=== PATIENT | male | born 1965 | race Two or more races ===

== ENCOUNTER 2022-04-13 08:01 | Outpatient (CLI) | payer SELFPAY | END 2022-04-13 08:02 | disposition home or self-care (01) | LOC: AMB 04-16 18:08 | PROVIDERS: Visit Provider Family Medicine | DX: R41.82 Altered mental status, unspecified (principal) ==

== ENCOUNTER 2022-08-14 20:25 | Observation (INO) | payer SELFPAY ==
[2022-08-14 20:30] VITALS: BP 150/91; PULSE 92; RESP 18; TEMP 36.5; O2SAT 97
--- NOTE | 2022-08-14 20:40 | ED_ITS ---
HPI - General Adult General Time Seen by Provider: 20:40 Date Seen: 08/14/22 Chief complaint: Unspecified Complaint, Adult Stated complaint: Left side facial swelling and pain Time Seen by Provider: 08/14/22 20:27 Source: patient, RN notes reviewed and director of labor relations Mode of arrival: ambulatory Limitations: no limitations History of Present Illness HPI narrative: Patient is a 57-year-old male coming into the ER with left facial swelling and pain. The swelling started on Monday, he has had increased pain and swelling though more so today. He has not noted any fevers. He has maybe had some dental pain on that side but not necessarily in conjunction with his current symptoms. He reportedly can chewing eat without any difficulty, no swallowing difficulties. Related Data Allergies Allergy/AdvReac Type Severity Reaction Status Date / Time No Known Drug Allergies Allergy Verified 08/14/22 21:42 PFSH PFSH Social History Smoking Status: Never smoker Non-prescribed substance use: denies use Exam Const: Vital Signs, click to edit/add: Vital Signs - 24 hr 08/14/22 20:30 Temperature 97.7 F Pulse Rate [Left P ulse Oximeter] 92 Respiratory Rate 18 Blood Pressure [Ri ght Upper Arm] 150/91 H Pulse Oximetry 97 Oxygen Delivery Me thod Room Air Documenting provider has reviewed patient's vital signs: yes Common normals: no apparent distress, average body habitus, oriented x3, no limitations, healthy appearing and alert General appearance: cooperative, comfortable, well kempt and well developed HENMT: Common normals: normocephalic, head/scalp atraumatic, hearing grossly normal bilaterally, external ears normal, TM's normal bilaterally, external nose normal, nasal mucous membranes and turbinates normal, moist oral mucous membranes and oropharynx normal Head and scalp: normocephalic and atraumatic Nose: external nose normal and nasal mucous membranes and turbinates normal External ear: external ears normal Tympanic membrane: TM's normal bilaterally Teeth and gingiva: poor dentition (but no evidence of odontoid infection noted) Throat: posterior oropharynx normal Eye: Common normals: PERRL, EOMs intact bilaterally, conjunctivae normal and no scleral icterus Conjunctiva: conjunctiva(e) normal Pupil: PERRL Other: Has facial swelling along left lower face, slightly reddened, no fluctuance, not really tender when I palpate although he does state it is sore baseline. He has some swelling without erythema that seems to go into the left upper lip and along the nasal labial fold. The nose itself seems normal. Swelling maybe reflects along the left lower jaw. Can open his mouth easily without any difficulty, no trismus. Neck & C-Spine: Common normals: full ROM, no lymphadenopathy, supple, no meningeal signs and thyroid normal Thyroid: thyroid normal Resp: Common normals: normal respiratory effort, no retractions, no use of accessory muscles and clear to auscultation bilaterally Auscultation: clear to auscultation bilaterally Cardio: Common normals: regular rate, regular rhythm, S1 normal heart sound, S2 normal heart sound, no gallops, no clicks and no murmurs Rate: regular rate Rhythm: regular rhythm Heart sounds: S1 normal and S2 normal Neuro: Common normals: oriented x3 Sensorium/orientation: alert Meningeal signs: no meningeal signs Psych: Appearance: well kempt Course Reevaluation(s) Reevaluation #1: Have reviewed with patient that there is an abscess likely from dental origin. Where it is situated on the CT it looks like it is just below his left nose. When I re-evaluate, I can see up in front that there may be is reachable abscess pocket, he is tender there. He would like something for pain. We will try some Toradol and Tylenol, if this is not sufficient then other pain management can be discussed. He denies any allergies to penicillin class, will initiate Unasyn for this abscess. We also reviewed that his sugar is 616. He is known to be diabetic and only takes metformin. I did briefly review this with Dr. Daugherty at 11:31 p.m., she agrees with hospitalization here given his glucose level and the abscess. We cannot do definitive care for this dental issue but we do need to initiate antibiotic treatment and work on his diabetic control. I do have a hemoglobin A1c which I did do a lab add on for. Am waiting to talk to the overnight admitting service. I have talked to patient about trying to use a little lidocaine to numb the gum area up and see if I can open the abscess pocket. Time: 23:42 Reevaluation #2: With the assistance of nursing staff, was able to better reflect his upper lip and see there was indeed a good abscess pocket that was palpably fluctuant overlying his front upper teeth, primarily most prominent in the left 1st upper front tooth. 2 mL of plain 1% lidocaine was drawn up. I only needed to infiltrate about 1 mL in the area. A 12 blade scalpel was used to make a stab incision into the center of this fluctuant area and copious mucopurulent material started draining. Patient did relay that some of the pressure was improved. Time: 01:01 Consultations Consultation #1: Just spoke with hospitalist from [facility], she will accept the patient. I will however attempt to open this abscess before he goes down to the floor. We did also discuss insulin, agreed on initiating the patient 10 units long-acting nightly insulin, subsequently ordered 10 units of Levemir. Time: 00:17 Vital Signs Vital signs: Initial Vital Signs Temperature 97.7 F 08/14/22 20:30 Temperature Source Temporal Artery Scan 08/14/22 20:30 Pulse Rate 92 08/14/22 20:30 Respiratory Rate 18 08/14/22 20:30 Blood Pressure 150/91 H 08/14/22 20:30 Blood Pressure Mean 110 H 08/14/22 20:30 Blood Pressure Position Sitting 08/14/22 20:30 Pulse Oximetry 97 08/14/22 20:30 Oxygen Delivery Method Room Air 08/14/22 20:30 Vital Signs Temperature 97.7 F 08/14/22 20:30 Pulse Rate 92 08/14/22 20:30 Respiratory Rate 18 08/14/22 20:30 Blood Pressure 150/91 H 08/14/22 20:30 Pulse Oximetry 97 08/14/22 20:30 Oxygen Delivery Method Room Air 08/14/22 20:30 Temperature 97.7 F 08/14/22 20:30 Pulse Rate 92 08/14/22 20:30 Respiratory Rate 18 08/14/22 20:30 Blood Pressure 150/91 H 08/14/22 20:30 Pulse Oximetry 97 08/14/22 20:30 Oxygen Delivery Method Room Air 08/14/22 20:30 Medical Decision Making Lab Data Lab results reviewed: Yes I reviewed the patient's lab results Labs: Lab Results 08/14/22 08/14/22 Range/Units 21:00 22:40 WBC 7.43 (4.50-11.00) K/uL RBC 4.60 (4.30-5.90) m/uL Hgb 14.2 (13.5-17.5) gm/dL Hct 43.3 (37.0-53.0) % MCV 94 (80-100) fL MCH 31 (26-34) pg MCHC 33 (32-36) gm/dL RDW Coeff of Sarai 12.1 (11.5-15.5) % Plt Count 224 (140-440) K/uL Neut % (Auto) 76.9 H (42.0-72.0) % Lymph % (Auto) 14.5 L (20-44) % Bowman % (Auto) 7.9 (0.0-11.0) % Eos % (Auto) 0.5 (0.0-7.0) % Baso % (Auto) 0.1 (0.0-3.0) % Neut # (Auto) 5.70 (1.7-7.0) K/uL Lymph # (Auto) 1.10 (0.90-2.90) K/uL Bowman # (Auto) 0.60 (0.00-0.90) K/UL Eos # (Auto) 0.04 (0.00-0.50) K/uL Baso # (Auto) 0.01 (0.00-0.30) K/uL Sodium 135 (135-149) mmol/L Potassium 4.5 (3.6-5.1) mmol/L Chloride 96 (96-114) mmol/L Carbon Dioxide 25 (20-32) mmol/L BUN 15 (7-30) mg/dL Creatinine 0.8 (0.5-1.5) mg/dL Estimated GFR 103 ml/min Glucose (60-115) mg/dL Hemoglobin A1c > 14.00 H (0-5.6) % Calcium 9.4 (8.4-10.6) mg/dL C-Reactive Protein 5.2 H (0.5-1.0) mg/dL Lab Acknowledgement Test Added POC Creatinine 0.9 (0.6-1.3) mg/dl Imaging Data CT soft tissue neck with IV contrast: Attestation: I have reviewed the pertinent imaging results. My impression: My preliminary review, can see what looks to be facial abscess area, need to await Radiology over-read on this. Radiologist's impression: Patient: MIRIAM HOLBROOK Facility:?[facility] Patient ID:?[id number] Site Patient ID:?[id number]. Site :?[id number] Study:?CT ST Neck w/ 93cc [id number]-325-1/14/2023 9:43:58 PM Ordering Physician:Vijay Jeff Final Report: INDICATION: Left facial swelling and pain. TECHNIQUE: CT soft tissue of the neck was acquired with 93 cc Isovue 370 contrast. COMPARISON: None. FINDINGS: Skull base: Complete opacification of the left maxillary sinus with hyperostosis of the sinus balderrama, likely sequela chronic inflammation. Mucous retention cyst in the right maxillary sinus. Pharynx/Larynx/Trachea: Epiglottis is normal. Airway is patent. Adjacent soft tissues are normal. Salivary glands: Unremarkable. Thyroid gland: Unremarkable. No significant nodules. Lymph nodes: No lymphadenopathy. Vessels: Unremarkable for age. Bones: Unremarkable for age. Misc: Lobulated peripherally enhancing low density collection in the left premaxillary soft tissues measuring approximately 2.7 x 1.3 x 1.3 cm (TR x AP x CC). Surrounding soft tissue stranding. Lung apices: Unremarkable. IMPRESSION: 1. Left premaxillary soft tissue abscess. Although there is no dehiscence of the maxillary alveolar ridge, this is still favored to be periodontal in origin given adjacent dental caries. 2. Chronic sinusitis left maxillary sinus. Please note that all CT scans at this facility use dose modulation, iterative reconstruction, and/or weight-based dosing when appropriate to reduce radiation dose to as low as reasonably achievable. Dictated by Piyush Rodriguez MD @ 08/14/2022 11:20:36 PM (Electronic Signature) Critical Care Time Critical Care Time Critical Care Time: No Discharge Plan Discharge Clinical Impression: Uncontrolled type 2 diabetes mellitus, Dental abscess Patient Disposition: Admitted As Inpatient Condition: Improved
--- NOTE | 2022-08-14 20:52 | CRLHL7_ITS ---
For Patients: As a result of the Century Cures Act, medical imaging exams and procedure reports are released immediately into your electronic medical record. You may view this report before your referring provider. If you have questions, please contact your health care provider. INDICATION: Left facial swelling and pain. TECHNIQUE: CT soft tissue of the neck was acquired with 93 cc Isovue 370 contrast. COMPARISON: None. FINDINGS: Skull base: Complete opacification of the left maxillary sinus with hyperostosis of the sinus balderrama, likely sequela chronic inflammation. Mucous retention cyst in the right maxillary sinus. Pharynx/Larynx/Trachea: Epiglottis is normal. Airway is patent. Adjacent soft tissues are normal. Salivary glands: Unremarkable. Thyroid gland: Unremarkable. No significant nodules. Lymph nodes: No lymphadenopathy. Vessels: Unremarkable for age. Bones: Unremarkable for age. Misc: Lobulated peripherally enhancing low density collection in the left premaxillary soft tissues measuring approximately 2.7 x 1.3 x 1.3 cm (TR x AP x CC). Surrounding soft tissue stranding. Lung apices: Unremarkable. IMPRESSION: 1. Left premaxillary soft tissue abscess. Although there is no dehiscence of the maxillary alveolar ridge, this is still favored to be periodontal in origin given adjacent dental caries. 2. Chronic sinusitis left maxillary sinus. Please note that all CT scans at this facility use dose modulation, iterative reconstruction, and/or weight-based dosing when appropriate to reduce radiation dose to as low as reasonably achievable. Dictated by Piyush Rodriguez MD @ 08/14/2022 11:20:36 PM (Electronically Signed)
[2022-08-14 21:11] LABS: Basophils Absolute Auto 0.01 K/uL (0.00-0.30); Basophils Percent Auto 0.1 % (0.0-3.0); Eosinophils Absolute Auto 0.04 K/uL (0.00-0.50); Eosinophils Percent Auto 0.5 % (0.0-7.0); Hematocrit 43.3 % (37.0-53.0); Hemoglobin* 14.2 gm/dL (13.5-17.5); Immature Granulocytes Abs Auto 0.01 K/uL (0.00-0.30); Immature Granulocytes Pct Auto 0.1 %; Lymphocytes Percent Auto 14.5 % (20-44); Mean Corpuscular HGB Conc 33 gm/dL (32-36); Mean Corpuscular Hemoglobin 31 pg (26-34); Mean Corpuscular Volume 94 fL (80-100); Monocytes Percent Auto 7.9 % (0.0-11.0); Neutrophils Percent Auto 76.9 % (42.0-72.0); Platelet Count* 224 K/uL (140-440); RDW Coefficient of Variation % 12.1 % (11.5-15.5); White Blood Count* 7.43 K/uL (4.50-11.00)
[2022-08-14 21:12] LABS: Creatinine, Point-of-Care* 0.9 mg/dl (0.6-1.3)
[2022-08-14 21:14] LABS: Slide Review Reflex No
[2022-08-14 21:41] LABS: Chloride* 96 mmol/L (96-114); Potassium* 4.5 mmol/L (3.6-5.1); Sodium* 135 mmol/L (135-149)
[2022-08-14 21:44] LABS: Blood Urea Nitrogen* 15 mg/dL (7-30); Carbon Dioxide* 25 mmol/L (20-32); Creatinine* 0.8 mg/dL (0.5-1.5); Estimated Glomerular Filt Rate 103 ml/min
[2022-08-14 21:45] LABS: Calcium* 9.4 mg/dL (8.4-10.6)
[2022-08-14 21:47] LABS: C Reactive Protein* 5.2 mg/dL (0.5-1.0)
[2022-08-14 23:38] LABS: Hemoglobin A1C* > 14.00 % (0-5.6)
--- NOTE | 2022-08-14 23:39 | PC.NURSE ---
at with stock associate
[2022-08-14] MEDS: AMPICILLIN/SULBACTAM 3 GM in 0.9 % SODIUM CHLORIDE Mini-bag 100 ML IVPB (23:59)
[2022-08-14] MEDS: ACETAMINOPHEN 500 MG TABLET 1000 MG PO (23:59)
[2022-08-14] MEDS: KETOROLAC 15 MG/ML inj IVP (23:59)
[2022-08-15 01:13] VITALS: BP 130/91; PULSE 75; RESP 18; TEMP 36.9; O2SAT 95; O2SAT 98; BMI 24.6
--- NOTE | 2022-08-15 01:49 | PC.NURSE ---
nursing called georgina provider to report BG 485. Provider states have patient eat something and recheck BG in 1 hour
--- NOTE | 2022-08-15 01:58 | P.CCN_ITS ---
Assessment and Plan Assessment and plan (1) Dental abscess: Status: Acute (2) Uncontrolled type 2 diabetes mellitus: Status: Acute Plan [facility] Hospitalist Consult for Admission eHospitalist was contacted with request of consultation for admission. 57-year-old male, past medical history significant for uncontrolled T2DM, who presents to local ED with complaints of left-sided facial swelling, pain. Patient evaluated and interviewed with the assistance of a ordnance engineer. Patient reports left-sided facial swelling and pain began last Monday and has since steadily worsened. Patient denies any associated fevers, drainage, difficulty swallowing or breathing. Patient states he has never had anything similar before. He does endorse issues with his teeth in the past, however nothing recently. Patient underwent I&D in the ED, with reported mucopurulent drainage and relief of pain/pressure. States he is feeling a lot better at present. Home Medications: Has been out of his medications recently. Pertinent Medical History: T2DM Pertinent Social History: Denies tobacco, illicit drug use. Endorses rare alcohol use. Exam (performed via interactive video with assistance of bedside nurse): General: alert, cooperative, no acute distress HEENT: oral mucosa pink and moist without erythema. Unable to see any active drainage. Poor dentition noted. Lungs: clear to auscultation bilaterally without crackle or wheeze CV: regular rate and rhythm without loud murmur rub or gallop Abd: denies tenderness and does not exhibit signs of pain with palpation done by bedside nurse Skin: no rashes, bruises or lesions appreciated on gross visualization of exposed skin Neuro: alert, oriented x 3. facial muscles grossly intact, moves all extremities without any significant focal deficit appreciated by nurse #Left periodontal abscess ?Patient underwent I&D by ED physician with improvement in symptoms, appreciate assistance. Patient placed on Unasyn, will continue. ?Acetaminophen available as needed for pain. Patient currently asymptomatic. ?Will be important for patient to have dental follow-up as an outpatient, as suspect poor dentition (and uncontrolled diabetes) predisposed him to this ab scess #T2DM, uncontrolled ? Blood sugar on admission, >600. Hemoglobin A1c >14. Patient given 10 units Levemir in the ED, which brought his sugar down to 45 when rechecked on the floor. Will have patient eat something, and recheck blood sugars every hour until stabilized. Hypoglycemic protocol also ordered. ?Consult placed to nutrition to assist with diabetic education. Diet: Diabetic VTE prophylaxis: Ambulation CODE STATUS: Full code Thank you for including [facility] Hospitalist in this patient's care. This service is available for further assistance as requested by your care team by calling [phone]. Dictation Comment: This document was transcribed utilizing [id number] technology ([employer] software). Occasional mistranslation may occur.
--- NOTE | 2022-08-15 02:50 | PC.NURSE ---
Nursing spoke with [facility] to report updated BG of 473 and previous [facility] nurse Alberto interpreted BG wrong and informed provider at [facility] that patient BG was 65 instead of 485. This nurse that spoke with [facility] nurse and informed Alberto that the value was repeated back to nurse several times at 485. Alberto, nurse informed provider of correct blood sugar trend and NovoLog aspart was order to be given to patient. Nursing call [facility] telepharmacy to have medication verified STAT.
--- NOTE | 2022-08-15 04:12 | PC.NURSE ---
This nurse spoke with Aleena and reported BG of 403. Aleena will notifiy provider and give nursing a call back.
[2022-08-15] MEDS: AMPICILLIN/SULBACTAM 3 GM in 0.9 % SODIUM CHLORIDE Mini-bag 100 ML IVPB ×4 (05:19→23:14)
--- NOTE | 2022-08-15 06:45 | PC.NURSE ---
[id number]: Patient presents to the floor at approx 0100 with asymptomatic hyperglycemia and drainage of abscess in mouth. Patient has no complains of pain at this time. Economics Teacher used for admission and assessment. Patient denies chest pain, shortness of breath, headache, dizziness, fatigue and numbness and tingling. Patient with frequent urination. Patient blood sugar checked hourly for the first few hours to the floor and then provider discontinued order and states blood sugar within a reasonable number at 403 as blood sugar was trending down at this time. Patient with good appetite. Patient rested well. Patient continues on ABX therapy for abscess.
[2022-08-15 07:06] LABS: Basophils Absolute Auto 0.02 K/uL (0.00-0.30); Basophils Percent Auto 0.3 % (0.0-3.0); Eosinophils Absolute Auto 0.07 K/uL (0.00-0.50); Eosinophils Percent Auto 1.1 % (0.0-7.0); Hemoglobin* 12.6 gm/dL (13.5-17.5); Immature Granulocytes Abs Auto 0.01 K/uL (0.00-0.30); Immature Granulocytes Pct Auto 0.2 %; Lymphocytes Absolute Auto 1.73 K/uL (0.90-2.90); Lymphocytes Percent Auto 26.5 % (20-44); Mean Corpuscular HGB Conc 33 gm/dL (32-36); Mean Corpuscular Hemoglobin 31 pg (26-34); Mean Corpuscular Volume 94 fL (80-100); Monocytes Percent Auto 10.6 % (0.0-11.0); Neutrophils Absolute Auto 4.02 K/uL (1.7-7.0); Neutrophils Percent Auto 61.3 % (42.0-72.0); Platelet Count* 202 K/uL (140-440); RDW Coefficient of Variation % 12.1 % (11.5-15.5); Red Blood Count 4.05 m/uL (4.30-5.90); White Blood Count* 6.54 K/uL (4.50-11.00)
[2022-08-15 07:18] LABS: Chloride* 101 mmol/L (96-114); Potassium* 3.6 mmol/L (3.6-5.1); Sodium* 139 mmol/L (135-149)
[2022-08-15 07:20] LABS: Creatinine* 0.6 mg/dL (0.5-1.5); Est. Creatinine Clearance* 129.83; Estimated Glomerular Filt Rate 112 ml/min
[2022-08-15 07:21] LABS: Blood Urea Nitrogen* 18 mg/dL (7-30); Calcium* 9.2 mg/dL (8.4-10.6); Carbon Dioxide* 31 mmol/L (20-32); Glucose* 340 mg/dL (60-115)
[2022-08-15 07:27] LABS: Slide Review Reflex No
[2022-08-15 08:00] VITALS: BP 117/80; PULSE 67; RESP 14; TEMP 36.9; O2SAT 98
--- NOTE | 2022-08-15 08:15 | PM.IMPN1 ---
Progress Note: A&P Assessment and plan (1) Dental abscess: Status: Acute (2) Uncontrolled type 2 diabetes mellitus: Status: Acute Subjective Date Seen: 08/15/22 Interval history: Daily Progress Note - Hospital Medicine Day #: 2 CC: Unasyn Day#2 (start date 08/14/22 evening) OVERNIGHT UPDATES FROM STAFF & MED, LAB, IMAGING UPDATES Afebrile overnight. Blood sugars are slowly coming down. This morning is 316. He received Levemir at 10 units last night and is on sliding scale. This morning I restarted his oral antihyperglycemics which include glipizide 10 mg and metformin 1 g XR b.i.d.. His blood pressure has been excellent. Heart rate has been in the 60s to 70s. He is on Tylenol but no other pain medications. Objective: Vitals: see above Lungs: Clear. Cardiac: S1S2. Disposition/Potential discharge - Likely to return to previous living situation. Total time is 35 minutes with greater than 50% spent in counseling and coordination of care. Exam Const: Vital Signs, click to edit/add: Vital Signs - 24 hr 08/14/22 20:30 08/15/22 01:13 08/15/22 01:13 Temperature 97.7 F 98.5 F Pulse Rate [Left P ulse Oximeter] 92 Pulse Rate [Pulse Oximeter] 75 Respiratory Rate 18 18 Blood Pressure [Ri ght Arm] 130/91 H Blood Pressure [Ri ght Upper Arm] 150/91 H Pulse Oximetry 97 98 95 Oxygen Delivery Me thod Room Air Room Air Room Air Labs Labs: Laboratory Results - last 24 hr 08/14/22 08/14/22 08/15/22 21:00 22:40 06:58 WBC 7.43 6.54 RBC 4.60 4.05 L Hgb 14.2 12.6 L Hct 43.3 38.0 MCV 94 94 MCH 31 31 MCHC 33 33 RDW Coeff of Sarai 12.1 12.1 Plt Count 224 202 Neut % (Auto) 76.9 H 61.3 Lymph % (Auto) 14.5 L 26.5 Screven % (Auto) 7.9 10.6 Eos % (Auto) 0.5 1.1 Baso % (Auto) 0.1 0.3 Neut # (Auto) 5.70 4.02 Lymph # (Auto) 1.10 1.73 Screven # (Auto) 0.60 0.70 Eos # (Auto) 0.04 0.07 Baso # (Auto) 0.01 0.02 Sodium 135 139 Potassium 4.5 3.6 Chloride 96 101 Carbon Dioxide 25 31 BUN 15 18 Creatinine 0.8 0.6 Estimated Creat Clear 129.83 Estimated GFR 103 112 Glucose 340 H Hemoglobin A1c > 14.00 H Calcium 9.4 9.2 C-Reactive Protein 5.2 H Lab Acknowledgement Test Added POC Creatinine 0.9
[2022-08-15] MEDS: glipiZIDE XL 5 MG TAB 10 MG PO (08:21)
[2022-08-15] MEDS: METFORMIN ER 500 MG 1000 MG PO ×2 (08:21→20:57)
--- NOTE | 2022-08-15 09:07 | P.IMHP_ITS ---
Hospitalist- H&P: HPI History of Present Illness Date Seen: 08/15/22 Chief complaint: Left side facial swelling and pain Narrative: ADMISSION HISTORY AND PHYSICAL - HOSPITALIST Chief Complaint: Tooth pain, headache HPI: 57-year-old type 2 diabetic male presents to our emergency room yesterday with approximately 6 days of increasing symptoms in his left upper gum line. He has had on and off dental pressure for several weeks but the pain in the last 5 days has accelerated. Afebrile overnight. Blood sugars are slowly coming down. This morning is 316. He received Levemir at 10 units last night and is on sliding scale. This morning I restarted his oral antihyperglycemics which include glipizide 10 mg and metformin 1 g XR b.i.d.. His blood pressure has been excellent. Heart rate has been in the 60s to 70s. He is on Tylenol but no other pain medications. ER COURSE: CBC, chemistries, A1c and a CT soft tisse neck were obtained in the emergency room. These are reviewed in detail. CODE STATUS: FULL CODE EMERGENCY CONTACT PLAN: I've updated the PFSH, medications and allergies in the Expanse tabs. INVESTIGATIONS: LABS/MICRO/ECG/IMAGING 117/80, pulse 67, respiration 14, afebrile. 98% on room air. CBC reflects a white count that is stable Hemoglobin that previously was 14.2 yesterday upon arrival and is now 12.6 Platelets normal Blood sugars have been 340, 316 up to 485. A1c is greater than 14. Normal renal function and normal electrolytes. CRP last night was 5.2 CT 1. Left premaxillary soft tissue abscess. Although there is no dehiscence of the maxillary alveolar ridge, this is still favored to be periodontal in origin given adjacent dental caries. 2. Chronic sinusitis left maxillary sinus. REVIEW OF SYSTEMS: 12-point ROS completed with patient and negative unless otherwise stated in HPI or below. PHYSICAL EXAM: CONSTITUTIONAL: Conversive, good historian. A/O. Knows setting and context. VITAL SIGNS: see record. HEENT: PERRL. EOMI. fullness felt along the left perinasal soft tissue that extends to nasal labial fold. MOUTH: fullness above the left upper incisors with no drainage. oral cavity is otherwise unremarkable. both nares are patent. subtle submandibular lymphadenopathy. NECK: No JVD. No carotid bruit, no thyromegaly, no adenopathy. CHEST: Clear to auscultation bilaterally HEART: S1 and S2 normal. No harsh murmurs. Edema MUSCULOSKELETAL: No gross joint deformity or swelling. NEURO: Cranial nerves intact. Grossly intact. No asymmetric findings. SKIN: No rashes, petechiae, concerning changes PSYCHIATRIC: Euthymic. ADMIT TO MEDSURG: FLOOR CARE DVT: Lovenox GI: PO intake Time spent: 70 minutes examining patient, conferring with family and patient, care staff, developing care plan [facility] Medical History (Updated 08/15/22 @ 11:23 by Lucía Izaguirre MD) Hypertension ?I10 - Essential (primary) hypertension (ICD-10) Hyperlipidemia ?E78.5 - Hyperlipidemia, unspecified (ICD-10) DM (diabetes mellitus), type 2 ?E11.9 - Type 2 diabetes mellitus without complications (ICD-10) Surgical History (Updated 08/15/22 @ 11:19 by Lucía Izaguirre MD) No history of previous surgery Family History (Updated 08/15/22 @ 01:36 by Diego Bosch RN) Mother DM (diabetes mellitus), type 2 Social History Highest level of school completed/degree received: 9th grade Smoking Status: Never smoker How often do you have a drink containing alcohol: monthly or less Alcohol type: hard liquor How many standard drinks containing alcohol do you have on a typical day: 1 or 2 How often do you have six or more drinks on one occasion: Monthly AUDIT-C Alcohol total score: 3 Non-prescribed substance use: denies use Caffeine: Yes service: No Meds Home Medications and Allergies Home Medications Medication Instructions Recorded Confirmed Type glipizide 10 mg tablet, extended 10 mg PO DAILY 08/15/22 08/15/22 History release 24 hr lisinopril 10 mg tablet 10 mg PO DAILY 08/15/22 08/15/22 History metformin 500 mg tablet,extended 1,000 mg PO BID 08/15/22 08/15/22 History release 24 hr simvastatin 20 mg tablet 20 mg PO DAILY 08/15/22 08/15/22 History Allergies Allergy/AdvReac Type Severity Reaction Status Date / Time No Known Drug Allergies Allergy Verified 08/14/22 21:42 Exam Const: Vital Signs, click to edit/add: Vital Signs - 24 hr 08/14/22 20:30 08/15/22 01:13 08/15/22 01:13 Temperature 97.7 F 98.5 F Pulse Rate [Left P ulse Oximeter] 92 Pulse Rate [Pulse Oximeter] 75 Respiratory Rate 18 18 Blood Pressure [Ri ght Arm] 130/91 H Blood Pressure [Ri ght Upper Arm] 150/91 H Pulse Oximetry 97 98 95 Oxygen Delivery Me thod Room Air Room Air Room Air Hospitalist - H&P: Result Labs Labs: Short CBC 08/14/22 08/15/22 Range/Units 21:00 06:58 WBC 7.43 6.54 (4.50-11.00) K/uL Hgb 14.2 12.6 L (13.5-17.5) gm/dL Hct 43.3 38.0 (37.0-53.0) % Plt Count 224 202 (140-440) K/uL BMP 08/14/22 08/15/22 21:00 06:58 Sodium 135 139 Potassium 4.5 3.6 Chloride 96 101 Carbon Dioxide 25 31 BUN 15 18 Creatinine 0.8 0.6 Glucose 340 H Calcium 9.4 9.2 Assessment and Plan Assessment and plan (1) Dental abscess: Problem comment: -continue unasyn -add peridex mouthwash -arrange for oral surgery close f/u - placing social work consult to investigate his dental coverage vs [employer] oral surgery options Status: Acute (2) Uncontrolled type 2 diabetes mellitus: Problem comment: A1C >14. has home glucose monitoring supplies. takes Metformin. -restarting metformin at 1 gram with food BID -starting glipizide -evening levemir at 10 units -sliding scale Status: Acute (3) Hypertension: Problem comment: no meds, previous lisinopril 10mg -monitor here Status: Acute (4) Hyperlipidemia: Problem comment: -meets medication initiation - no meds as of yet Status: Acute
[2022-08-15] MEDS: SODIUM CHLORIDE 0.9 % (FLUSH) 10 ML SYRINGE 5 ML IVF ×3 (10:51→23:15)
[2022-08-15 11:00] VITALS: BP 109/74; PULSE 70; RESP 14; TEMP 36.9; O2SAT 97
[2022-08-15] MEDS: ENOXAPARIN 40 MG/0.4 ML INJ SUBCUT (11:38)
[2022-08-15] MEDS: CHLORHEXIDINE GLUCONATE 473 ML MOUTHWASH 15 ML SWISH/SPIT ×3 (13:02→20:57)
--- NOTE | 2022-08-15 13:57 | NUTR.NU ---
RDN with MD consult for diabetic teaching. Patient not appropriate at this time to visit. RDN will continue to monitor and visit/follow-up at later date.
--- NOTE | 2022-08-15 14:11 | PC.NURSE ---
Shift Summary: Pt remained AO throughout shift. Pts first language is Amharic but understands and responds to questions in Cape Verdean. Floorperson used for MD round and Medicare paperwork. Pt on regular diet, tolerated well. Pt ambulates and toilets independently. Pt denies pain throughout shift. Afebrile.
[2022-08-15 15:55] VITALS: BP 105/71; PULSE 67; RESP 16; TEMP 36.9; O2SAT 97
[2022-08-15 19:00] VITALS: BP 103/71; PULSE 73; RESP 16; TEMP 36.9; O2SAT 97
--- NOTE | 2022-08-15 19:17 | PC.NURSE ---
Shift Summary 15-19: Patient pleasant and cooperative. Up independently. Vitals stable and WNL, afebrile. Denies pain, tolerating regular diet. Patient seen resting most of afternoon, up for dinner. Family at bedside for visit, also syriac speaking.
[2022-08-15 23:00] VITALS: BP 112/77; PULSE 70; RESP 16; TEMP 36.8; O2SAT 97
--- NOTE | 2022-08-16 00:34 | PC.NURSE ---
This nurse called Kevin and spoke with sage to have detemir order clarified. Patient was given 12 units of detemir at 2100 per MDO and 10 units is now ordered to be given for 0020. This nurse called for clarification of medication. Sage states she will give nursing a call back with provider recommendations.
[2022-08-16 03:00] VITALS: BP 103/71; PULSE 73; RESP 16; TEMP 36.9; O2SAT 97
[2022-08-16] MEDS: AMPICILLIN/SULBACTAM 3 GM in 0.9 % SODIUM CHLORIDE Mini-bag 100 ML IVPB ×2 (05:21→11:29)
--- NOTE | 2022-08-16 06:45 | PC.NURSE ---
[id number]: Patient had no acute events overnight. Patient compliant with medication regimen. Patient able to make needs known. Patient has no complains of pain at this time. Patient denies chest pain, shortness of breath, headache, dizziness, fatigue and numbness and tingling. Patient with excellent appetite and patient given sandwich, soup, coffee and yogurt prior to bed. Patient rested well. Patient continues on ABX therapy for abscess. will continue to monitor.
[2022-08-16 07:45] VITALS: BP 115/83; PULSE 77; RESP 18; TEMP 36.4; O2SAT 98
[2022-08-16] MEDS: METFORMIN ER 500 MG 1000 MG PO (08:10)
[2022-08-16] MEDS: glipiZIDE XL 5 MG TAB 10 MG PO (08:10)
[2022-08-16] MEDS: CHLORHEXIDINE GLUCONATE 473 ML MOUTHWASH 15 ML SWISH/SPIT ×2 (08:11→13:38)
[2022-08-16 08:38] LABS: Hematocrit 39.4 % (37.0-53.0); Mean Corpuscular HGB Conc 33 gm/dL (32-36); Mean Corpuscular Hemoglobin 31 pg (26-34); Mean Corpuscular Volume 95 fL (80-100); Platelet Count* 208 K/uL (140-440); Red Blood Count 4.16 m/uL (4.30-5.90); White Blood Count* 4.88 K/uL (4.50-11.00)
[2022-08-16 08:41] LABS: Slide Review Reflex No
[2022-08-16 08:50] LABS: Chloride* 101 mmol/L (96-114); Sodium* 138 mmol/L (135-149)
[2022-08-16 08:51] LABS: Potassium* 4.7 mmol/L (3.6-5.1)
[2022-08-16 08:53] LABS: Creatinine* 0.5 mg/dL (0.5-1.5); Estimated Glomerular Filt Rate 118 ml/min
[2022-08-16 08:54] LABS: Blood Urea Nitrogen* 15 mg/dL (7-30); Carbon Dioxide* 32 mmol/L (20-32); Glucose* 259 mg/dL (60-115); Magnesium* 1.7 mg/dL (1.5-2.6)
[2022-08-16 08:57] LABS: C Reactive Protein* 3.8 mg/dL (0.5-1.0)
--- NOTE | 2022-08-16 10:17 | NUTR.NU ---
Patient was educated on carbohydrate counting, portion sizes, balancing meals/snacks.? Healthy Meal Planning handout provided from [employer].? Reviewed pt?s usual food pattern Recommended for patient to have fewer carbohydrate choices at breakfast, aim for 4 carbohydrate choices with meals with 1-2 choices for snacks as needed based on hunger.? Patient was also encouraged to keep timing of meals consistent and avoid skipping meals.? Also, encouraged patient to keep a source of carbohydrate available.? If pt starts to feel shaky, sweaty, anxious, confused ? to test his blood sugar if his meter is available and treat with 1 carbohydrate ? 4 oz juice, soda or a fruit snack packet.? ?Patient verbalized understanding.? RDNs contact information was provided and patient was encouraged to contact RDN with questions.
[2022-08-16 11:00] VITALS: BP 111/79; PULSE 84; RESP 18; TEMP 36.6; O2SAT 97
--- NOTE | 2022-08-16 11:14 | PC.SOCIAL ---
Addendum entered by DEO Morataya 08/16/22 14:32: Met with pt. with the [employer] pt. contact information for [facility] and for the [facility] in [place] to get an appt. scheduled for dental. Also gave pt. the dental hours at the [facility] to see if pt. wanted to drive directly there and try to be seen. Pt. was also given the [facility] Financial assistance application. Original Note: Contacted [facility] for pt. no one answers and it appears the phone is not working. Left a message at the [facility] site. Contacted [facility] in [place] and they do not serve [facility] and do not do extractions. Tried [facility] in [facility] as they do extractions. A message was left with Gonsalo Hoang at [phone] on appointment availability.
[2022-08-16] MEDS: SODIUM CHLORIDE 0.9 % (FLUSH) 10 ML SYRINGE 5 ML IVF (11:30)
--- NOTE | 2022-08-16 12:07 | PM.DS1 ---
DS: Providers Provider Date Seen: 08/16/22 Date of admission: 08/15/22 01:00 Primary care physician: Not a Local Provider Admitting Clinician: Yeimy Daugherty MD Consults: 08/15/22 01:34 Consult to Nutrition [CONS] Routine Comment: Reason for consult:: Diabetic Teaching 08/15/22 11:20 Consult to Methods Analyst Data Processing [CONS] Routine Comment: help find dentist/oral surgeon. insurance? Reason for Consult:: Social Service Consult Attending Physician on discharge: Lucía Izaguirre MD [facility] Hospitalist Date of Discharge: 08/16/22 DS: Diagnosis Discharge Diagnosis (1) Dental abscess: Status: Acute Problem details: -status post I/D orally of abscess (In ED) -IV Unasyn q.6 -outpatient Augmentin 500 mg t.i.d. for 10 days -CT reviewed with ENT, recommended dental extractions -patient given information on outpatient [facility] in [place] - I recommend that he be seen within the next 7 days while still on oral antibiotics to complete this consultation and avoidance of readmission and further infection issues (2) Uncontrolled type 2 diabetes mellitus: Status: Acute Problem details: -sending prescriptions for metformin and Glucotrol -continue b.i.d. home glucose monitoring A1C >14. has home glucose monitoring supplies. (3) Hypertension: Status: Acute Problem details: -no discharge meds. Blood pressure has been normal here. Follow-up with [facility], Dr. Carter for further care. (4) Hyperlipidemia: Status: Acute Problem details: -meets medication initiation - no meds as of yet. [facility] care. DS: Summary Hospital Course Hospital Course: HOSPITALIST DISCHARGE SUMMARY ATTENDING PHYSICIAN: Lucía Izaguirre MD FINAL DIAGNOSIS: Dental abscess Controlled type 2 diabetes HOSPITAL FOLLOWUP ISSUES: 1. Outpatient dental consultation 2. PCP, [facility], follow-up for diabetes, hypertension, hyperlipidemia and follow-up for her dental abscess REFERRALS WHILE ADMITTED: Dietetics REFERRALS AFTER DISCHARGE: Dental BRIEF HOSPITAL COURSE: Charles is a 57-year-old male who presented with facial pain and swelling. He was diagnosed with a dental abscess that had some local extension into the soft tissues along the left nasal labial fold. This abscess was lanced in the ED by our most excellent ER physician, Dr. Suchomel. He responded symptomatically to this I and D. He continued to respond nicely to IV Unasyn. He is type 2 diabetic with an A1c greater than 14. Bleed contributed to his infection. His blood sugars were managed with sliding scale insulin, nightly dosing of Levemir, and a re-initiation of some of his home meds. I started him on metformin XR 1 g b.i.d. with food, Glucotrol XL 10 mg daily with food. These were both sent to his pharmacy. He is not being discharged on insulin. His vital signs are stable. I consulted much informally/curbside, with our ENT colleague. He felt his infection was secondary to a dental abscess and thought extractions were we needed. On the afternoon of 08/16 he met discharge criteria. 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 He has no dental insurance and thus will be set up with a [facility] dental clinic. He was given instructions, driving instructions and when to follow-up. SUBSTANTIVE NOTATIONS ON IMAGING, LAB, MICROBIOLOGY/PATHOLOGY STUDIES: Vital signs are normal. No fever. Room air sats 98% CBC reveals no obvious leukocytosis. All values are stable from admission. Electrolytes are normal. Blood sugars have been high but are correcting with both infection treatment as well as oral metformin and Glucotrol. He did receive some sliding scale insulin and long-acting Levemir but this will not be continued as an outpatient. A1c 14 CRP down trending 5.2 down to 3.8 Troponin was still pending likely equipment failure in the lab. No cardiac concerns. FINDINGS: Skull base: Complete opacification of the left maxillary sinus with hyperostosis of the sinus balderrama, likely sequela chronic inflammation. Mucous retention cyst in the right maxillary sinus. Pharynx/Larynx/Trachea: Epiglottis is normal. Airway is patent. Adjacent soft tissues are normal. Salivary glands: Unremarkable. Thyroid gland: Unremarkable. No significant nodules. Lymph nodes: No lymphadenopathy. Vessels: Unremarkable for age. Bones: Unremarkable for age. Misc: Lobulated peripherally enhancing low density collection in the left premaxillary soft tissues measuring approximately 2.7 x 1.3 x 1.3 cm (TR x AP x CC). Surrounding soft tissue stranding. Lung apices: Unremarkable. IMPRESSION: 1. Left premaxillary soft tissue abscess. Although there is no dehiscence of the maxillary alveolar ridge, this is still favored to be periodontal in origin given adjacent dental caries. 2. Chronic sinusitis left maxillary sinus. DISCHARGE MEDICATIONS: See Reconciled list - SIGNIFICANT CHANGES: Metformin and Glucotrol Augmentin REVIEW OF SYSTEMS No new chest pain or dyspnea Pain controlled No voiding difficulties Tolerating diet challenge PHYSICAL EXAM: CONSTITUTIONAL: Well. VITAL SIGNS: see record. HEENT: Decrease inflammation and induration along length left nasal labial fold. Continued fullness in the upper left gumline. All improved from yesterday and obviously from admission. NECK: No JVD. No carotid bruit, no thyromegaly, no adenopathy. CHEST: Clear to auscultation bilaterally. HEART: S1 and S2 normal. Edema ABDOMEN: Soft, nontender. Normal bowel sounds. MUSCULOSKELETAL: No gross joint deformity or swelling. NEURO: Cranial nerves intact. Grossly intact. No asymmetric findings. SKIN: No rashes, petechiae, concerning changes PSYCHIATRIC: Mood euthymic. DISPOSITION: Home Time spent on discharge 37 minutes. Status at Discharge Functional status at discharge: independent ambulation Overall status at discharge: patient is progressing back to baseline Time Spent with Patient Time attestation: Total time spent providing and/or coordinating discharge services: Time spent: Greater than 30 minutes Exam Const: Vital Signs, click to edit/add: Vital Signs - 24 hr 08/15/22 15:55 08/15/22 19:00 08/15/22 23:00 Temperature 98.5 F 98.5 F 98.3 F Pulse Rate [Pulse Oximeter] 67 73 70 Respiratory Rate 16 16 16 Blood Pressure [Ri ght Arm] 105/71 103/71 112/77 Pulse Oximetry 97 97 97 Oxygen Delivery Me thod Room Air Room Air Room Air 08/15/22 23:00 08/16/22 03:00 08/16/22 07:45 Temperature 98.5 F Pulse Rate [Pulse Oximeter] 70 73 77 Respiratory Rate 16 16 18 Blood Pressure [Ri ght Arm] 103/71 Pulse Oximetry 97 Oxygen Delivery Me thod Room Air 08/16/22 07:45 Temperature 97.6 F Pulse Rate [Pulse Oximeter] 77 Respiratory Rate 18 Blood Pressure [Ri ght Arm] 115/83 Pulse Oximetry 98 Oxygen Delivery Me thod Room Air DS: Data Data Completed and Pending Labs on day of discharge: Labs from last 24 hours 08/16/22 08:30 WBC 4.88 RBC 4.16 L Hgb 13.0 L Hct 39.4 MCV 95 MCH 31 MCHC 33 Plt Count 208 Sodium 138 Potassium 4.7 Chloride 101 Carbon Dioxide 32 BUN 15 Creatinine 0.5 Estimated Creat Clear 155.80 Estimated GFR 118 Glucose 259 H Calcium 9.0 Magnesium 1.7 Troponin I Pending C-Reactive Protein 3.8 H Discharge Plan Discharge Disposition: Home, Self-Care Date of Admission: 08/15/22 01:00 Attending Provider on Discharge: Lucía Izaguirre Primary Care Provider: Provider,Not a Local Condition: Improved Anticipated Discharge Date/Time: 08/16/22 12:02 Discharge Medications: New glipizide 5 mg Tablet Extended Release 24hr 10 mg PO DAILY Qty: 90 0RF metformin 500 mg Tablet Extended Release 24 Hr 1,000 mg PO BID Qty: 360 0RF chlorhexidine gluconate 0.12 % Mouthwash 15 ml SWISH/SPIT QID Qty: 120 0RF amoxicillin-pot clavulanate [Augmentin] 500-125 mg tablet 1 tab PO TID Qty: 21 0RF Continued latanoprost 0.005 % drops 1 drp ophthalmic (eye-left) QPM aspirin 81 mg tablet,delayed release (DR/EC) 81 mg PO DAILY Discontinued glipizide 10 mg tablet extended release 24hr 10 mg PO DAILY simvastatin 20 mg tablet 20 mg PO DAILY lisinopril 10 mg tablet 10 mg PO DAILY metformin 500 mg tablet extended release 24 hr 1,000 mg PO BID Discharge Orders: Discharge Order (Routine); Ordered 08/16/22 Ordered By: Lucía Izaguirre Patient Education: Chlorhexidine (Into the mouth), Amoxicillin/Clavulanate Potassium (By mouth), Dental Abscess (GEN) Additional Instructions: 1. Take antibiotic until you see the dentist, you will likely need 1-2 teeth pulled from your upper left jawline. 2. When you see the dentist - show them the report of the CT scan and this discharge information. Ear, Nose and Throat physician felt the abscess in the gumline and up near the nose was from a dental source. Activity Level: Activity as Tolerated Discharge Diet: Diabetic Follow Up Appointments: [facility] [Other] (Please schedule a follow up appointment with [facility] to be seen in 1 week) Kieran Carter MD [Referring] - 08/23/22 Provider,Not a Local [Primary Care Provider] - 08/19/22 (Give him information on the [facility] that social work (Melanie) has ) Forms: MyHealth Info Instructions
[2022-08-16] MEDS: ENOXAPARIN 40 MG/0.4 ML INJ SUBCUT (12:08)
--- NOTE | 2022-08-16 16:00 | PC.NURSE ---
VSS AND AFEBRILE. LS CLEAR.
--- NOTE | 2022-08-16 16:21 | PC.NURSE ---
DENIES PAIN. TOLERATING REGULAR DIET. PATIENT MET WITH [facility] DEPARTMENT MANAGER AND OTORHINOLARYNGOLOGIST. REVIEWED DC INSTRUCTIONS WITH PATIENT VIA OTORHINOLARYNGOLOGIST. OTORHINOLARYNGOLOGIST WAS ABLE TO SET FOLLOW UP APPOINTMENTS WITH [facility] FOR MD 08/16/22 AT 1700 AND A DENTIST FOR Monday08/19/22 THROUGH [facility]. PRESCRIPTIONS SENT TO [facility] AND YELLOW SCRIPT SENT WITH PATIENT. SALINE LOCK DC'D. PATIENT DC'D HOME VIA FAMILY.
[2022-08-17 19:14] LABS: Troponin I* < 0.01 ng/mL (0.01-0.04)
== END 2022-08-16 15:30 | disposition home or self-care (01) ==
LOC: ED 21:25 → MEDSURG 08-15 01:02
PROVIDERS: Family Medicine; Internal Medicine; Admitting Provider Family Medicine; Emergency Provider Family Medicine; Visit Provider Family Medicine
DX: K04.7 Periapical abscess without sinus (principal); E11.9 Type 2 diabetes mellitus without complications; I10 Essential (primary) hypertension; E78.5 Hyperlipidemia, unspecified; Z79.84 Long term (current) use of oral hypoglycemic drugs
CPT/HCPCS: 36415; 41800; 70491; 80048; 82565; 82962; 83036; 83735; 84484; 85025; 85027; 86140; 96365; 96366; 96372; 96375; 99284; T1013; A9270; G0378; J0295; J1650; J1885; Q9967

== ENCOUNTER 2024-10-29 16:17 | Emergency (ER) | payer MEDICAID, SELFPAY ==
--- OUTSIDE RECORDS SUMMARY | 2024-10-29 16:20 | XMS_ITS | Continuity of Care Document ---
Author Organization [facility] Address [address] [place] [address] Assessment Encounter Date Assessment Date Assessment LastModified by Organization Details LastModified Time 09/16/2024 09/16/2024 At least 25 minutes spent with patient, reviewing chart and completing documentation . [email or web address] [id number] Not available 09/16/2024 11:47:55 Plan of Treatment Reminders Order Date Submit Date Provider Last Modified By Organization Details Last Modified Time Details Appointments ESTABLISH ED PATIENT 30 2024 09:00A M Marissa Raygoza INSURANCE OFFICE SUPERVISOR Not available Not available Not available Lab hemoglobi n A1c, QN, blood [address] Office, [address] [place] [address], [phone], 09/16/2024 11:31:45 microalbu min/creat inine, ratio panel, urine [address]- Lab, [address] [place] [address], [address], 09/16/2024 11:40:51 BMP, serum or plasma [address] Lab, [address] [place], [address], 09/16/2024 11:36:54 lipid panel, serum [address] Lab, [address] [place], [address], 09/16/2024 11:32:47 Referral patient navigator referral 2024 [facility] [place] 09/23/2024 12:52:49 Procedures None recorded. Surgeries None recorded. Imaging None recorded. Medication Orders metformin ER 500 mg tablet,ex tended release 24 hr [address], [address], 09/17/2024 13:22:44 glipizide ER 2.5 mg tablet, extended release 24 hr [address], [address], 09/17/2024 13:22:33 Patient TargetsNo targets recorded. Patient Instructions Encounter Date Encounter Id Patient Instructions Last Modified By Organization Details Last Modified Time 09/16/2024 [id number] codo de tenista: ejercicios - [tennis elbow: exercises] [email or web address] Not available 09/16/2024 11:31:45 codo de tenista: instrucciones de cuidado - [tennis elbow: care instructions] [email or web address] Not available 09/16/2024 11:31:45 Reason for Referral Referring Physician: Marissa coker, Family Medicine, Encounter Date: 09/16/2024 Results Created Date Observation Date Name Description Value Unit Range Abnormal Flag Note LastModifiedBy Organization Detail LastModifiedTime 09/17/1909/16/2024 lipid panel , serum A1C 7.3 high Not Available [facility] [address] [place], [address], 09/16/2024 14:22:48 09/17/19 25 09/16/2024 lipid panel , serum total cholestrol 211 high Not Available [facility] [address] [facility] [place], [address], 09/16/2024 14:22:48 09/17/19 25 09/16/2024 lipid panel , serum triglyceride s 323 high Not Available [facility] [address] [place] [address] [place], [address], 09/16/2024 14:22:48 09/17/19 25 09/16/2024 lipid panel , serum HDL 42 Not Available [facility] [address] [place] [address] [place], [address], 09/16/2024 14:22:48 09/17/19 25 09/16/2024 lipid panel , serum LDL 104 high Not Available [facility] [address] [place] [address] [place], [address], 09/16/2024 14:22:48 09/14/19 25 09/13/2024 hemog lobin A1c, QN, blood A1C 7.3 high Not Available [facility] [address] [place] [address] [place], [address], 09/13/2024 11:14:42 09/14/19 25 09/13/2024 hemog lobin A1c, QN, blood total cholestrol 211 high Not Available [facility] [address] [place] [address] [place], [address], 09/13/2024 11:14:42 09/14/19 25 09/13/2024 hemog lobin A1c, QN, blood triglyceride s 323 high Not Available [facility] [address] [place] [address] [place], [address], 09/13/2024 11:14:42 09/14/19 25 09/13/2024 hemog lobin A1c, QN, blood HDL 42 Not Available [facility] [address] [place] [address] [place], [address], 09/13/2024 11:14:42 09/14/19 25 09/13/2024 hemog lobin A1c, QN, blood LDL 104 high Not Available [place] [address] [facility] [place], [address], 09/13/2024 11:14:42 Result Notes None recorded. Problems Name Problem SNOMED Code Status Onset Date Resolution Date Notes Provider Name and Address Organization Details Recorded Time Type 2 diabetes mellitus 24292194 Active 2021 Kieran Carter MD [address] [place], [address], [facility] [place] 2 16:39:03 Essaurora l hyperten devyn 67009584 Active 2021 Kieran Carter MD [address] [place] [address], [address], [facility] 2 16:39:19 Hyperlip idemia 52406593 Active 2021 Kieran Carter MD [address] [place], [address], [facility] 2 17:58:34 History of SARS-CoV -2 [id number] Completed 202212/16/2022 Moderate to severe with hospital izations and blood clots. Marissa Raygoza NP [address] [place], [address], [facility] 3 16:00:00 Notes:Problem: Hyperlipidemi a Status: Chronic Problem: Hemorrhoids Status: Non-Chronic Problem Notes None recorded. Medical Equipment None Reported. Allergies No known drug allergies Medications Name Sig Start Date Stop Date Status Note LastModified by Organization Details LastModified Time cyclobenz aprine 10 mg tablet 01/09 completed Not Available Not Available Not Available latanopro st 0.005 % eye drops INSTILL 1 DROP INTO AFFECTED EYE(S) BY OPHTHALM IC ROUTE ONCE DAILY INTHE EVENING 10/24 completed Not Available Not Available Not Available pioglitaz one 15 mg tablet TAKE ONE TABLET BY MOUTH EVERY DAY 10/24 completed Not Available Not Available Not Available metformin 500 mg tablet TAKE ONE TABLET (500MG) BY MOUTH TWICE DAILY 09/06 completed Not Available Not Available Not Available atorvasta tin 20 mg tablet TAKE ONE TABLET BY MOUTH EVERY DAY. 09/06 completed Not Available Not Available Not Available glipizide ER 10 mg tablet, extended release 24 hr TAKE 1 TABLET BY MOUTH EVERY DAY 01/25 completed Not Available Not Available Not Available glipizide ER 5 mg tablet, extended release 24 hr 1 tablet PO 09/16 completed Concern for hypoglyc emia. See case. Not Available Not Available Not Available pioglitaz one 45 mg tablet TAKE 1 TABLET BY MOUTH EVERY DAY 08/16 completed Not Available Not Available Not Available triamcino lone acetonide 0.5 % topical ointment APPLY A THIN LAYER TO THE AFFECTED AREA(S) BY TOPICAL ROUTE 2 TIMES PER DAY FOR 2 WEEKS THEN NEEDED 09/06 completed Not Available Not Available Not Available aspirin 81 mg tablet,de layed release TAKE 1 TABLET BY MOUTH EVERY DAY 09/06 completed Not Available Not Available Not Available triamcino lone acetonide 0.1 % topical cream APPLY A THIN LAYER TO THE AFFECTED AREA(S) BY TOPICAL ROUTE 2 TIMES PER DAY 10/24 completed Not Available Not Available Not Available ciclopiro x 8 % topical solution APPLY TO THE AFFECTED AREA(S) BY ONCE DAILY PREFERAB LY AT BEDTIME OR 8 HOURS BEFORE WASHING 06/19 completed Not Available Not Available Not Available glipizide ER 2.5 mg tablet, extended release 24 hr TAKE ONE TABLET BY MOUTH DAILY; INCREASE TO 2 TABLETS DAILY IF NEEDED active Not Available Not Available No t Available cephalexi n 500 mg capsule TAKE ONE CAPSULE BY MOUTH FOUR TIMES A DAY 01/06 completed Not Available Not Available Not Available simvastat in 20 mg tablet TAKE ONE TABLET BY MOUTH EVERY DAY 08/16 completed Not Available Not Available Not Available lisinopri l 10 mg tablet TAKE 1 TABLET BY MOUTH EVERY DAY 08/16 completed Not Available Not Available Not Available warfarin 2 mg tablet 01/06 completed Not Available Not Available Not Available gabapenti n 300 mg capsule TAKE ONE CAPSULE (300MG) BY MOUTH EVERY EVENING 08/16 completed Not Available Not Available Not Available ketoconaz ole 2 % topical cream APPLY TOPICALL Y TO AFFECTED AREA(S) ONCE DAILY. 12/21 completed Not Available Not Available Not Available fluoxetin e 20 mg capsule take 1 capsule by oral route every day in the morning 01/09 completed Not Available Not Available Not Available metformin ER 500 mg tablet,ex tended release 24 hr TAKE FOUR TABLETS BY MOUTH ONCE DAILY active Not Available Not Available No t Available amoxicill in 500 mg-potass ium clavulana te 125 mg tablet TAKE ONE TABLET BY MOUTH THREE TIMES DAILY 09/06 completed Not Available Not Available Not Available multivita min with iron tablet 1 tab PO daily 2023 active Not Available Not Available Not Avai lable Novolog Mix 70-30 FlexPen U-100 Insulin 100 unit/mL subcutane ous pen 01/06 completed Not Available Not Available Not Available Antifunga l (clotrima zole) 1 % topical cream APPLY TO AFFECTED AREA A THIN LAYER TWICE A DAY FOR 2-4 WEEKS. active Not Available Not Available No t Available chlorhexi dine gluconate 0.12 % mouthwash USE 15 ML BY MOUTH SWISH AND SPIT FOUR TIMES DAILY 10/24 completed Not Available Not Available Not Available UltiCare Pen Needle 29 gauge x 1/2 USE DIRECTED 01/06 completed Not Available Not Available Not Available Novolin 70-30 FlexPen U-100 Insulin 100 unit/mL (70-30) subcutane ous INJECT 50 UNITS SUBCUTAN EOUSLY BEFORE BREAKFAS T 01/06 completed Not Available Not Available Not Available Vitals Date Recorded Body height Body mass index (BMI) Body weight Body temperature Heart rate Oxygen saturation Oxygen saturation in Arterial blood by Pulse oximetry Systolic And Diastolic Provider Name and Address Organization Details Last Updated DateTime 5 179.07 cm 32.6 kg/m2 748114. 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 [place] 10/24/2022 18:38:20 How Many Years Have You Consumed Alcohol? -3 [email or web address] Information not available 10/24/2022 Have There Been Any Changes To Your Family Or Social Situation? No Information not available 03/08/2022 Do You Feel Safe At Home? Yes Information not available 03/08/2022 What Is Your Relationship Status? Single Lives With Mother And And A Friend Information not available 05/17/2022 Sex: Unknown Functional Status Question Answer Note LastModified by Organizat ion Details LastModified Time What is your level of alcohol consumption? Occasional Information not available 03/08/2022 Are you currently employed? Yes [email or web address] Information not available 10/24/2022 Mental Status Question Answer Note LastModified by Organization D etails LastModified Time Do you feel stressed (tense, restless, nervous, or anxious, or unable to sleep at night)? [id number] Information not available 03/08/2022 Family History Relationship Description Onset Age of this Age Resolved Age Notes LastModified by Organization Details LastModified Time Mother Type 2 diabetes mellitus [email or web address] Not available 10/24 18:37:50 Notes:Father of unknown causes, two healthy brothers Medical History No medical history recorded. Immunizations Vaccine Type Date Status Note Provider Nam e and Address Organization Details Recorded Time Influenza, split virus, trivalent, PF 05/11/2012 completed Marissa Raygoza NP [address] [place], [address], [facility] 10/24/2022 12:30:48 COVID-19 vaccine, vector-nr, rS-Ad26, PF, 0.5 mL 11/11/2020 completed RONNIE HERNANDEZ [address] [place], [address], [facility] 11/11/2020 16:24:57 Past Encounters Encounter ID Performer Location Encounter Start Date Encounter Closed Date Diagnosis/Indication Diagnosis SNOMED-CT Code Diagnosis ICD10 Code Diagnosis Note [id number] Marissa Raygoza NP [facility] [address] [place] [address] 09/16/2024 10:43:52 09/16/2024 11:59:50 Type 2 diabetes mellitus 27622971 E11.9 Fair control based on SMBG and A1C (7.3%). Continue Metformin; we will continue Glipizide for now but reduce dose to 2.5mg r/t concerns of symptomati c hypoglycem ia. Patient will increase back to 5mg if BGs show above goal values. Re-check A1C in 6 months, patient will call for direction if BGs are persistent ly elevated. Hyperlipidemia 69364587 E78.5 Continue to prefer to not start statin. Next lipid panel due 06/26. Anemia 495679876 D64.9 Continue with MVI. Now has M[facility]ure; will proceed with colonoscop y (also hx of episode of painless rectal bleeding). Lateral ep icondylitis of left humerus [id number] 87555 M77.12 Exam and hx consistent with tennis elbow. Trial of exercises, conservati ve care. RTC if no improvemen t in 6 weeks. Essential hypertension 93080905 I10 Remains at goal BPs off medication s. Continued TLCs encouraged . Coordinati on of care plan 992206681 Z71.89 Now has [facility]. Pref[facility] [place] [facility] [place] [facility]. We discussed that patient needs to pay [facility] bill, establish PCP appointmen t for colonoscop y order as I cannot do this from [facility]. We are working against time: needs shane be done before end of year r/t MNSure expansion cancellati on. Patient is aware. Will have advocacy appointmen t in [place] to move forward with above steps. Mother also has what sounds like APC but this [employer] period may help her pay some of her outstandin g bills. Health Concerns Section Related Observation LastModified by Organization Detai ls LastModified Time None Recorded Concern Status LastModified by Organization Details LastModified Time None Recorded Payers Encounter Date Sequence Insurance Name Policy Number Policy Olivarez Covered Member ID Olivarez Member ID Guarantor Name 09/16/2024 SLIDING FEE SCHEDULE - DISCOUNT Charles Beckwith
--- OUTSIDE RECORDS SUMMARY | 2024-10-29 16:20 | XMS_ITS | Clinical Summary ---
Author Organization [facility] Address [address] [place] [address] Care Team Providers Care Assistant Men'S Soccer Coach Name Role Phone Michael Christina DO Unavailable [phone] Allergies No known active allergies Medications cephalexin (KEFLEX) 500 mg capsule Take 1 Capsule by mouth 4 times daily. 1 Active clotrimazole (LOTRIMIN) 1 % cream 1 Active metFORMIN (GLUCOPHAGE XR) 500 mg Extended-Releas e tablet Take 1,000 mg by mouth 2 times daily with meals. 1 Active insulin NPH-regular (NovoLIN 70-30 FlexPen U-100) 100 unit/mL (70-30) penIndications: Type 2 diabetes mellitus without complication, with long-term current use of insulin (HC) Inject 50 units subcutaneous before breakfast. 5 pen 5 1 Active UltiCare Pen Needle 29 gauge x 1/2 USE DIRECTED 1 Active Active Problems Problem Noted Date Diagnosed Date Deep vein thrombosis (DVT) associated with COVID -19 02/19/2020 Anticoagulation monitoring, INR range 2-3 2019 Acute deep vein thrombosis ( DVT) of calf muscle vein of left lower extremity 01/24/2020 Acute respiratory failure due to COVID-19 Pneumonia due to COVID-19 virus Acute hypoxemic respiratory failure due to COVID -19 Immunizations Immunization Administration Dates Next Due Influenza, IIV3 (Age 6-35 mos) 05/11/2012 Family History Medical History Relation Name Comments Diabetes Mother Relation Name Status Comments Mother Social History Tobacco Use Types Packs/Day Years Used Date Smoking Tobacco: Former Cigarettes Q uit: 04/03/2009 Smokeless Tobacco: Never Tobacco Cessation:Counseling Given: Yes Alcohol Use Standard Drinks/Week Comments Yes 0 (1 standard drink = 0.6 oz pur e alcohol) PHQ-2 Answer Date Recorded PHQ-2 TOTAL SCORE 2 07/29/2020 Social Connections Answer Date Recorded Frequency of Communication with Friends and Fami ly Not on file 2021 Financial Resource Strain Answer Date R ecorded Difficulty of Paying Living Expenses Not on file 2021 Difficulty of Paying Living Expenses Not on file 2021 Sex and Gender Information Value Date Recorded Sex Assigned at Not on file Legal 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 Gender Identity Not on file Sexual Orientation Not on file Obstetrics History Last Filed Vital Signs Vital Sign Reading Time Taken Comments Blood Pressure 141/97 08/18/2020 10:25 AM CDT Pulse 80 08/18/2020 10:25 AM CDT Temperature 36.4 C (97.5 F) 07/24/2020 1:39 PM CDT Respiratory Rate 16 01/27/2020 8:00 AM CDT Oxygen Saturation 98% 08/18/2020 10:25 AM CDT RA Inhaled Oxygen Concentration - - Weight 113 kg (249 lb 3.2 oz) 07/29/2020 1:58 PM CDT Height 174.5 cm (5' 8.7) 01/20/2020 3:49 AM CDT Body Mass Index 37.12 01/20/2020 3:49 AM CDT Plan of Treatment Health Maintenance Due Date Last Done Comments Tetanus booster 1975 HIV for age 15-65 1979 BMI (ht and wt on same day) for age 18+ 1982 Hepatitis C screening for age 18-79 1982 Colonoscopy through age 75 2009 Pneumococcal series for age 50+ (1 of 1 - PCV) 2014 Zoster (shingles) series for age 50+ (1 of 2) 2014 Lipids for age 45-75 03/16/2020 03/16/2015 Depression screening for age 12+ 07/31/2021 07/31/2020, 07/30/2020, 07/30/2020, Additional history exists COVID-19 vaccine series ( season) 2023 11/11/2020 Influenza Vaccine (#1) 2024 05/11/2012 RSV vaccine for adults or (1 - 1-dose 75+ series) 2039 Hepatitis B series for 19+ Aged Out N o longer eligible based on patient's age to complete this topic Procedures Procedure Name Priority Date/Time Associated Diagnosis Comments LIPID PANEL W REFLEX MEASURED LDL Routine 03/16/2015 4:04 PM CURTAIN SUPERVISOR Chest pain from Last 3 Months or Most Recently Relevant to Health Maintenance Results * (ABNORMAL) LIPID PANEL W REFLEX MEASURED LDL (03/16/2015 4:04 PM CURTAIN SUPERVISOR) CHOLESTEROL,TOTAL 238(H) 100 - 199 mg/dL 03/16/2015 4:37 PM CURTAIN SUPERVISOR [facility] TRIGLYCERIDES 288(H) <150 mg/dL 03/16/2015 4:37 PM CURTAIN SUPERVISOR [facility] HDL CHOLESTEROL 59 >40 mg/dL 03/16/2015 4:37 PM CURTAIN SUPERVISOR [facility] NON-HDL CHOLESTEROL 179(H) <145 mg/dl 03/16/2015 4:37 PM CURTAIN SUPERVISOR [facility] CHOL/HDL RATIO 4.03 <4.50 03/16/2015 4:37 PM CURTAIN SUPERVISOR [facility] LDL CHOLESTEROL 121 <=130 mg/dL 03/16/2015 4:37 PM CURTAIN SUPERVISOR [facility] PATIENT STATUS NON-FASTI NG 03/16/2015 4:37 PM CURTAIN SUPERVISOR [facility] Blood specimen (specimen) BLOOD SPECIMEN / Unknown Venipuncture / Unknown 03/16/2015 4:04 PM CURTAIN SUPERVISOR 03/16/2015 4:04 PM CURTAIN SUPERVISOR us Michael Christina DO CHEMISTRY Final Result [facility] [address] [facility] [place] [address], [place] [phone] from Last 3 Months or Most Recently Relevant to Health Maintenance Advance Directives * Full Code (Latest Code Status on File) Date Activated Date Inactivated Comments 01/20/2020 1:35 AM 01/27/2020 6:18 PM Question Answer Comments Code Status Discussion: Not Discussed Care Teams Assistant Men'S Soccer Coach Relationship Specialty Start Date End Date Michael Christina DO [address] [place] [address] [place] [address] Family Practice 06/25/13
--- OUTSIDE RECORDS SUMMARY | 2024-10-29 16:20 | XMS_ITS | Data Portability ---
Author Organization [facility] - [employer] alcantara [facility] Address [address] [place] [id number] Assessment Encounter Date Assessment Date Assessment LastModified by Organization Details LastModified Time 06/24/2024 06/24/2024 At least 25 minutes spent with patient, reviewing chart and completing documentation . [email or web address] Not available 06/24/2024 11:39:22 09/16/2024 09/16/2024 At least 25 minutes spent with patient, reviewing chart and completing documentation . [email or web address] Not available 09/16/2024 11:47:55 Plan of Treatment Reminders Order Date Submit Date Provider Last Modified By Organization Details Last Modified Time Details Appointments ESTABLISH ED PATIENT 30 2024 09:00A M Marissa Raygoza STABLE MANAGER Not available Not available Not available Lab hemoglobi n A1c, QN, blood [address] Office, [address] [place] [address], [address], 09/16/2024 11:31:45 microalbu min/creat inine, ratio panel, urine [address]- Lab, [address] [place], [address], 09/16/2024 11:40:51 BMP, serum or plasma [address]- Lab, [address] [place], [address], 09/16/2024 11:36:54 lipid panel, serum [address]- Lab, [address] [facility] [place], [address], 09/16/2024 11:32:47 hemoglobi n A1c, QN, blood 2024 025 [facility] [address] [facility] [place], [address], 09/13/2024 12:07:52 lipid panel, serum 2024 025 KHALIF [place] [facility], [address] [facility] [place], [address], 09/16/2024 14:22:48 BMP, blood 2023 024 [facility], [address] [place] [address] [place], [address], 01/25/2024 21:53:18 hemoglobi n A1c, QN, blood 2023 024 [facility], [address] [place] [address], [address], 01/25/2024 21:54:16 CBC 2023 024 [facility], [address] [place] [address] [place], [address], 01/25/2024 21:51:51 hemoglobi n A1c, QN, blood 2023 025 [facility] [place] [facility], [address] [place] [address] [place], [address], 06/19/2024 12:02:53 Referral patient navigator referral 2024 [id number] [email or web address] Not available 09/23/2024 12:52:49 patient navigator referral - Patient tells me he has had multiple appointme nts with us both here and at [facility] to apply for MNSure and we have not kept these. I cannot see his record to know what actually happened. However, can we please make an appointme nt with patient that we can be sure to keep. His mother has breast cancer and he is caring for her but he should still have daytime availabil ity. 2024 025 [email or web address] Not available 06/25/2024 12:51:38 community health worker referral - See notes. Can I please have an update on Charles's BGs in 2 weeks. We are re-starti ng Glipizide . 2023 024 [email or web address] Not available 02/27/2024 12:56:57 Procedures None recorded. Surgeries None recorded. Imaging None recorded. Medication Orders metformin ER 500 mg tablet,ex tended release 24 hr [address], [address], 09/17/2024 13:22:44 glipizide ER 2.5 mg tablet, extended release 24 hr [address], [address], 09/17/2024 13:22:33 metformin ER 500 mg tablet,ex tended release 24 hr [address], [address], 02/21/2024 14:29:29 glipizide ER 5 mg tablet, extended release 24 hr [address], [address], 09/16/2024 11:11:26 multivita min with iron tablet [address], [address], 02/21/2024 14:49:46 metformin ER 500 mg tablet,ex tended release 24 hr [address], [address], 01/23/2024 13:09:01 Antifunga l (clotrima zole) 1 % topical cream [address], [address], 02/21/2024 14:23:47 metformin ER 500 mg tablet,ex tended release 24 hr [address], [address], 01/22/2024 17:26:02 Patient TargetsNo targets recorded. Patient Instructions Encounter Date Encounter Id Patient Instructions Last Modified By Organization Details Last Modified Time 01/22/2024 [id number] CBC and basic panel today, Stay on metformin for now. Follow up based on results of testing today. [email or web address] Not available 01/22/2024 16:23:16 02/21/2024 [id number] diabetes tipo 2: instrucciones de cuidado - [type 2 diabetes: care instructions] [email or web address] Not available 02/21/2024 14:29:29 09/16/2024 [id number] codo de tenista: ejercicios - [tennis elbow: exercises] [email or web address] Not available 09/16/2024 11:31:45 codo de tenista: instrucciones de cuidado - [tennis elbow: care instructions] [email or web address] Not available 09/16/2024 11:31:45 Reason for Referral Community Health Worker Refe rral for Type 2 diabetes mellitus See notes. Can I please have an update on Charles's BGs in 2 weeks. We are re-starting Glipizide. Referring Physician: Marissa Raygoza, Family Medicine, Encounter Date: 02/21/2024 Patient tells me he has had multiple appointments with us both here and [facility] and [facility] have not [facility] these. I cannot see his record to know what actually happened. However, can we please make an appointment with patient that we can be sure to keep. His mother has breast cancer and he is caring for her but he should still have daytime availability. Referring Physician: Marissa Raygoza, Family Medicine, Encounter Date: 06/24/2024 Referring Physician: Marissa coker, Family Medicine, Encounter Date: 09/16/2024 Results Created Date Observation Date Name Description Value Unit Range Abnormal Flag Note LastModifiedBy Organization Detail LastModifiedTime 09/17/1909/16/2024 lipid panel , serum A1C 7.3 high Not Available [place] [facility] [address] [place] [address] [place], [address], 09/16/2024 14:22:48 09/17/19 25 09/16/2024 lipid panel , serum total cholestrol 211 high Not Available [facility] Office [address] [place] [address] [place], [address], 09/16/2024 14:22:48 09/17/19 25 09/16/2024 lipid panel , serum triglyceride s 323 high Not Available [facility] [address] [place] [address] [place], [address], 09/16/2024 14:22:48 09/17/19 25 09/16/2024 lipid panel , serum HDL 42 Not Available [place] [facility] [address] [place] [address] [place], [address], 09/16/2024 14:22:48 09/17/19 25 09/16/2024 lipid panel , serum LDL 104 high Not Available [place] [facility] [address] [place] [address] [place], [address], 09/16/2024 14:22:48 06/20/19 25 06/19/2024 BMP, blood micro ratio 10 Not Available [facility] [address] [place], [address], 06/19/2024 11:51:24 06/20/19 25 06/19/2024 BMP, blood creatinine 0.9 Not Available Pending sale to [facility] [address] [place], [address], 06/19/2024 11:51:24 08/24/19 24 08/24/2023 hemog lobin A1c, QN, blood A1C 6.3 % <5.6 high Not Available [place] [facility] [address] [facility] [place], [address], 08/25/2023 08:47:56 01/23/2001/23/2024 hemog lobin A1c, QN, blood A1C 11.9 abnormal Not Available [place] Office [address] [place] [address] [place], [address], 01/24/2024 17:05:55 01/23/2001/23/2024 BMP, blood glucose 421 abnormal Not Available [place] [facility] [address] [place], [address], 01/24/2024 15:08:08 01/23/2001/23/2024 BMP, blood creatinine 0.82 Not Available Pending [facility] to [facility] [address] [place], [address], 01/24/2024 15:08:08 01/23/2001/23/2024 CBC HGB 13.3 low Not Available [place] [facility] [address] [place] [address] [place], [address], 01/24/2024 14:04:57 01/23/2001/23/2024 CBC white blood count 6.8 Not Available [facility] [address] [place] [address] [place], [address], 01/24/2024 14:04:57 01/23/20 24 01/23/2024 CBC plt 185 Not Available [place] Office [address] [place] [address] [place], [address], 01/24/2024 14:04:57 06/20/19 25 06/19/2024 micro album in/cr eatin ine, ratio panel , urine micro ratio 10 Not Available [facility] Office [address] [place] [address] [place], [address], 06/19/2024 10:21:50 06/20/19 25 06/19/2024 micro album in/cr eatin ine, ratio panel , urine creatinine 0.9 Not Available Pending sale to [facility] [address] [place] [address] [place], [address], 06/19/2024 10:21:50 06/20/19 25 06/19/2024 hemog lobin A1c, QN, blood A1C 6.3 high Not Available [place] [facility] [address] [place] [address] [place], [address], 06/19/2024 10:03:33 09/14/19 25 09/13/2024 hemog lobin A1c, QN, blood A1C 7.3 high Not Available [place] [facility] [address] [place] [address] [place], [address], 09/13/2024 11:14:42 09/14/19 25 09/13/2024 hemog lobin A1c, QN, blood total cholestrol 211 high Not Available [facility] Office [address] [place] [address] [place], [address], 09/13/2024 11:14:42 09/14/19 25 09/13/2024 hemog lobin A1c, QN, blood triglyceride s 323 high Not Available [facility] [address] [place] [address] [place], [address], 09/13/2024 11:14:42 09/14/19 25 09/13/2024 hemog lobin A1c, QN, blood HDL 42 Not Available [place] [facility] [address] [place] [address], [address], 09/13/2024 11:14:42 09/14/19 25 09/13/2024 hemog lobin A1c, QN, blood LDL 104 high Not Available [place] Office [address] [place] [address], [address], 09/13/2024 11:14:42 Result Notes None recorded. Problems Name Problem SNOMED Code Status Onset Date Resolution Date Notes Provider Name and Address Organization Details Recorded Time Type 2 diabetes mellitus 80928465 Active 2021 Kieran Carter MD [facility] [place], [address], [employer] 2 16:39:03 [facility] hyper[facility] devyn 89462441 Active 2021 Kieran Carter MD [facility] [place], [address], [employer] 2 16:39:19 Hyperlip idemia 48409650 Active 2021 Kieran Carter MD [facility] [place], [address], [employer] 2 17:58:34 History of SARS-CoV -2 [id number] [id number] Completed 202212/16/2022 Moderate to severe with hospital izations and blood clots. Marissa Raygoza NP [address] [place], [address], [employer] 3 16:00:00 Notes:Problem: Hyperlipidemi a Status: Chronic [...] Not Available Not Available Vitals Date Recorded Systolic And Diastolic Provider Name and Address Organization Details Last Updated DateTime 06/24/2024 126/86 mm[Hg] Marissa Raygoza, CARPET REPAIRER [address] [place], [address], [place] [facility] 06/24/2024 10:24:58 Date Recorded Body height Body mass index (BMI) Body weight Respiratory rate Body temperature Oxygen saturation Oxygen saturation in Arterial blood by Pulse oximetry Heart rate Systolic And Diastolic Provider Name and Address Organization Details Last Updated DateTime 5 179.07 cm 33 kg/m2 145995. 18 g 26 /min 97.7 [degF] 98 % 98 % 70 /min 139/66 mm[Hg] Mary Fofana [facility] [email or web address] [facility] 5 10:03:28 Date Recorded Body height Heart rate Body mass index (BMI) Body weight Systolic And Diastolic Provider Name and Address Organization Details Last Updated DateTime 09/07/2023 179.07 cm 72 /min 35.1 kg/m2 578480.9 1 g 130/84 mm[Hg] Marissa Raygoza NP [address] [place], [address] , [facility] [email or web address] [facility] 4 10:59:37 Date Recorded Body height Body mass index (BMI) Body weight Body temperature Heart rate Oxygen saturation Oxygen saturation in Arterial blood by Pulse oximetry Systolic And Diastolic Provider Name and Address Organization Details Last Updated DateTime 5 179.07 cm 32.6 kg/m2 549808. 96 g 98.4 [degF] 80 /min 94 % 94 % 131/94 mm[Hg] Kim Escobar [facility] [email or web address] [facility] 5 10:49:45 Date Recorded Body height Body mass index (BMI) Body weight Respiratory rate Oxygen saturation Oxygen saturation in Arterial blood by Pulse oximetry Body temperature Heart rate Systolic And Diastolic Provider Name and Address Organization Details Last Updated DateTime 4 179.07 cm 28.9 kg/m2 33160.5 6 g 22 /min 99 % 99 % 98 [degF] 71 /min 132/82 mm[Hg] Mary Fofana [facility] [email or web address] [facility] 4 15:38:08 Date Recorded Systolic And Diastolic Provider Name and Address Organization Details Last Updated DateTime 02/21/2024 124/88 mm[Hg] Marissa Raygoza NP [address] [place], [address], [facility] [email or web address] [facility] 02/21/2024 14:32:47 Date Recorded Body height Body mass index (BMI) Body weight Respiratory rate Body temperature Oxygen saturation Oxygen saturation in Arterial blood by Pulse oximetry Heart rate Systolic And Diastolic Provider Name and Address Organization Details Last Updated DateTime 4 179.07 cm 27.4 kg/m2 29489.9 2 g 22 /min 98.2 [degF] 99 % 99 % 64 /min 149/91 mm[Hg] Mary Fofana [facility] [email or web address] [facility] 4 14:13:10 Social History Question Answer Notes LastModified by [employer] Details LastModified Time Tobacco Smoking Status Former Smoker Remote use in early adulthood Marissa Raygoza NP [address] [place], [address], [facility] [email or web address] [facility] 10/24/2022 18:38:20 How Many Years Have You Consumed Alcohol? -3 [email or web address] Information not available 10/24/2022 Have There Been Any Changes To Your Family Or Social Situation? No Information not available 03/08/2022 Do You Feel Safe At Home? Yes Information not available 03/08/2022 What Is Your Relationship Status? Single Lives With Mother And And A Friend Information not available 05/17/2022 Sex: Unknown Functional Status Question Answer Note LastModified by [email or web address] Details LastModified Time What is your level of alcohol consumption? Occasional Information not available 03/08/2022 Are you currently employed? Yes [employer] [email or web address] Information not available 10/24/2022 Mental Status Question Answer Note LastModified by Organization D etails LastModified Time Do you feel stressed (tense, restless, nervous, or anxious, or unable to sleep at night)? [id number] Information not available 03/08/2022 Family History Relationship Description Onset Age of this Age Resolved Age Notes LastModified by Organization Details LastModified Time Mother Type 2 diabetes mellitus [email or web address] Not available 10/24 18:37:50 Notes:Father of unknown causes, two healthy brothers Medical History No medical history recorded. Immunizations Vaccine Type Date Status Note Provider Nam e and Address Organization Details Recorded Time Influenza, split virus, trivalent, PF 05/11/2012 completed Marissa Raygoza, CHAY [address] [place], [address], [facility] 10/24/2022 12:30:48 COVID-19 vaccine, vector-nr, rS-Ad26, PF, 0.5 mL 11/11/2020 completed HEATHER MURDOCKRONNIE DOBSON [address] [place], [address], [facility] 11/11/2020 16:24:57 Past Encounters Encounter ID Performer Location Encounter Start Date Encounter Closed Date Diagnosis/Indication Diagnosis SNOMED-CT Code Diagnosis ICD10 Code Diagnosis Note HEATHER RONNIE STACY [facility] [address] [facility] [place] [address] 11/11/2020 16:00:50 11/12/2020 14:22:16 Administration of SARS-CoV-2 antigen vaccine 058874274 Z23 [id number] Kieran Carter MD [facility] [address] [facility] [place] [place] [address] 01/06/2022 10:53:06 01/06/2022 12:32:38 Type 2 diabetes mellitus 64638222 E11.9 v poor control now with complicati ons, booklet, work on diet, resume metformin, leg problems could be neuropathy or restless legs Essential hypertension 55129933 I10 need to get BP below 130/80 Type 2 grecia betes mellitus without complication 417533853 E11.9 [id number] MD DEANDRE HenningMEGHAN [facility] [address] [place] [address] 01/25/2022 17:55:59 01/25/2022 18:34:52 Type 2 diabetes mellitus 55438026 E11.9 glucose remains high,, incr metformin Essential hypertension 79020196 I10 BP is controlled with lisinopril Type 2 grecia betes mellitus without complication 137712109 E11.9 Hyperlipidemia 06631516 E78.5 cholestero l 234 with v high triglyceri diane, begin diet [id number] MD RAFAEL [facility] [address] [place] [address] 03/08/2022 17:29:54 03/08/2022 18:05:46 Type 2 diabetes mellitus without complication 477297777 E11.9 poor control, need to add pioglitazo ne Essential hypertension 40043136 I10 BP is controlled with lisinopril Hyperlipidemia 21804559 E78.5 pretreatme nt lipids 234/756,di et discussed, improving control should lower triglyceri diane, needs statin when he is amenable to more meds Type 2 grecia betes mellitus 07256335 E11.9 [id number] Kieran Carter MD [facility] [address] [place] [address] 05/17/2022 17:59:06 05/18/2022 11:43:34 Type 2 diabetes mellitus without complication 637344598 E11.9 poor control, but down from 450 to 299, need to review meds, decr metformin because of mild diarrhea and add glipizide to pioglitazo ne, insulin is a possibilit y Essential hypertension 96391023 I10 BP is controlled with lisinopril , no micro albumen Hyperlipidemia 85104258 E78.5 last lipids 234/756, start statin Renewal of prescription 813907952 Z76.0 [id number] Kieran Carter MD [facility] [address] [place] [address] 08/16/2022 18:06:10 08/16/2022 18:35:02 Uncontrolled type 2 diabetes mellitus 496730598 E11.65 HBA 1C 13.99 Hyperlipidemia 28397737 E78.5 lipids now 237/415 [id number] Marissa Raygoza, CHAY [facility] [address] [place] [address] 10/24/2022 11:44:42 10/24/2022 13:08:34 Type 2 diabetes mellitus 57003479 E11.9 Uncertain control although weight gain and fasting BGs are reassuring . Asymptomat ic. We had a lengthy discussion on the followin) Understand ing A1C v. spot BG and the goal of A1C <7.5% for him. Discussed extremely high A1C from 08/23 labs. Goal SMBG values reviewed.2 ) Role of diet as important treatment mechanism for controllin g BG. Carb and high-sugar foods; limiting ETOH. Mother cooks for him and she is able to control her BGs with diet very well so he will look to her for further guidance.3 ) Asked patient to check BGs fasting and 1-2 hours after largest meal 2-3x/week. We will also check A1C and talk on phone to review any needed further med changes based on these results.4) Patient lives in and wishes to be seen there. I will care for him until we can establish him with my colleague HARVEY.5) Re-start ASA 81mg daily. No bleeding history; was on this until August.Patien t voiced agreement and understand ing of plan. Tinea corporis 17160923 B35.4 Relationsh ip between BG and tinea reviewed. Dyslipidemia 627832131 E 78.5 + elevated TGs. Rationale for treatment provided. Benefits and rare but serious risks of statin therapy reviewed with patient. We will start Atorva 20mg daily and recheck panel in 6 weeks. Microalbuminuria 7185431 06 R80.9 On one test. Will need to repeat to confirm presence. If so, consider ACEI or ARB. [id number] Marissa Raygoza NP [facility] [address] [place] [address] 01/25/2023 12:41:11 01/25/2023 13:14:22 Type 2 diabetes mellitus 35732152 E11.9 Per A1C, excellent control. Per home BGs, good control but presence of symptoms and very low A1C compared to spot BGs suggest at least occasional symptomati c hypoglycem ia. Patient and I agreed to reduce Glipizide ER to 5mg. He will continue to track his BGs on occasion both before and after meals and with any symptoms. Goal values re-reviewe d. We will check A1C again in 3 months. Patient asked to call if episodes of trembling and dizziness do not resolve or with persistent ly out of range home BGs. Tinea corporis 07745342 B35.4 Resolved but patient is worried it will return. Requests refill of Clotrimazo le to have on hand. Dyslipidemia 569713667 E 78.5 Continue with Atorvastat in. Check lipid panel annually. Microalbuminuria 4242191 06 R80.9 Resolved. Continue with annual evaluation s. Onychomyco sis of toenails 370355592 B35.1 [id number] Marissa Raygoza NP [facility] [address] [place] [address] 06/05/2023 14:23:51 06/05/2023 15:06:00 Type 2 diabetes mellitus 31801361 E11.9 Patient's control is excellent and his BGs the past 3-4 days off all medication s suggest we can continue decreasing medication . We will stop Glipizide and halve Metformin. Patient to continue to check BGs and will return to last effective Metformin dose if BGs are above goal. We will keep a tight window for re-check to ensure we are not losing too much control by cutting back medication s. TLCs encourgaed . Hyperlipidemia 70138858 E78.5 Continue statin. Check annually. Essential hypertension 63583019 I10 At goal BPs off medication s. Recheck in 3 months. Pterygium of bilateral eyes 5970636476 39176 H11.003 Reviewed. Suggested lubricatin g drops; eye appointmen t also indicated. Eczema 35029654 L30.9 [id number] Marissa Raygoza NP [facility] [address] [facility] [place] [address] 09/07/2023 10:26:26 09/07/2023 11:11:52 Essential hypertension 38323639 I10 At goal BPs off medication s. BMP scheduled 04/27.We did talk about TCLs for HTN including limiting salt, high-fiber , high-veget able diet. Weight loss and limiting ETOH encouraged . Hyperlipidemia 35863230 E78.5 Wishes to hold off on statin. TLCs encouraged . Due for recheck 04/27. Type 2 grecia betes mellitus 23041665 E11.9 A1C shows excellent control but I am concerned for BG variabilit y r/t inconsiste nt dosing. I suggested patient consistent ly take 1g/day with dinner time. Encourage pill organizer. Patient is concerned about hypoglycem ia; I noted this is rare with Metformin. He will decide on taking 1 or 2 tablets but I encouraged consistent dosing so we can better characteri ze control with next labs. TLCs encouraged . Pain in left foot 043821 1467 90238 M79.672 At end of visit, patient mentions pain on the left foot on the lateral boder of his midfoot. Pain occurs after working for about 6 hours (he has an active job). Does not hurt on the days he does not work. He is wearing fairly narrow Sketchers today with some wear on the affected area. No abnormalit ies appreciate on foot. No TTP. Suspect this pain is r/t shoes. I encouraged trial of wide width shoes with stretchy fabric. RTC if this is not helpful. Tinea corporis 00104931 B35.4 Resolved but patient is worried it will return. Requests refill of Clotrimazo le to have on hand. I did note that this is available OTC. [id number] IRIS LOPEZ MD [facility] [address] [place] [address] 01/22/2024 15:21:42 01/23/2024 13:43:22 Painful rectal bleeding 651015506 K62.5 Concern with weight loss and bright red rectal bleeding which has been consistent but not in significan t amounts. The fact that blood sugars have not been that elevated raises concern about this being possible abdominal process including possible colon cancer causing the fatigue and shortness of breath in light of the blood sugars not doing too badly. Will look at blood work to see if there is any evidence of anemia or blood sugars being extremely high which patient states has not been a problem recently. Weight loss 48918346 R63 .4 weight loss of 20 pounds unintentio nal Uncontroll ed type 2 diabetes mellitus 354426616 E11.65 [id number] Marissa Raygoza NP [facility] [address] [place] [address] 02/21/2024 14:08:02 02/21/2024 16:42:47 Type 2 diabetes mellitus 61492031 E11.9 Uncontroll ed; In the setting of weight loss, fatigue. Patient's weight is down to the same level it was 2 years ago when his A1C was 12%. We discussed starting insulin or second med (LAI); advantages of insulin reviewed but patient opts for LAI. He has been on Glipizide in the past with good results. We will re-start this along (start 5mg x 1 week then 10mg thereafter ; further increases based on response) along with a return to lower carb diet. Statin declined. Will ask for CHW to check in with patient in 2 weeks to collect BGs evaluating response to re-startin g Glipizide. Anemia [id number] D64.9 Start OTC MVI. Episode of rectal bleeding last month. Needs colonoscop y ANUJA. Will meet with our patient advocacy team today to apply for insurance to proceed w/ colonoscop y urgently. Weight loss [id number] R63 .4 Consider hyperglyce segundo +/- GI origins. Colonoscop y is next step (already ordered by ); however, if APC or insurance cannot be secured within the month, should consider imaging. [id number] Marissa Raygoza NP [facility] [address] [place] [address] 06/24/2024 09:57:08 06/24/2024 10:40:11 Type 2 diabetes mellitus [id number] E11.9 Now well controlled per A1C; weight gain likely r/t to euglycemia after prolonged hyperglyce segundo. Patient is not convinced by his recent A1C, believes his control is poor so we will re-check again in 3 months. We reviewed diet and I learned patient's diet is often quite high in starches. We reviewed the ADA [place] Eating for Diabetes booklet and I provided this to patient. I encouraged him to use his glucometer to search for patterns to learn which foods raise his BG the most; all sodas discourage d. Statin and aspirin declined; patient is worried about a heart attack and stroke and I reviewed the rationale for these medication s but patient wishes to hold off for now. Overdue for lipid check; we will check that alongside A1C in 3 months. Finding re lated to health insurance issues [id number] Z59.9 Has tried to obtain [employer] to move forward with colonoscop y but has struggled to connect with our navigators . [id number] Marissa Raygoza NP [facility] [address] [place] [address] 09/16/2024 10:43:52 09/16/2024 11:59:50 Type 2 diabetes mellitus [id number] E11.9 Fair control based on SMBG and A1C (7.3%). Continue Metformin; we will continue Glipizide for now but reduce dose to 2.5mg r/t concerns of symptomati c hypoglycem ia. Patient will increase back to 5mg if BGs show above goal values. Re-check A1C in 6 months, patient will call for direction if BGs are persistent ly elevated. Hyperlipidemia [id number] E78.5 Continue to prefer to not start statin. Next lipid panel due 06/26. Anemia [id number] D64.9 Continue with MVI. Now has MNSure; will proceed with colonoscop y (also hx of episode of painless rectal bleeding). Lateral ep icondylitis of left humerus [id number] 91264 M77.12 Exam and hx consistent with tennis elbow. Trial of exercises, conservati ve care. RTC if no improvemen t in 6 weeks. Essential hypertension [id number] I10 Remains at goal BPs off medication s. Continued TLCs encouraged . Coordinati on of care plan [id number] Z71.89 Now has [employer]are. Prefers [facility] for care in place of [facility]. We discussed that patient needs to pay [employer] bill, establish PCP appointmen t for colonoscop y order as I cannot do this from [facility]. We are working against time: needs shane be done before end of year r/t MNSure expansion cancellati on. Patient is aware. Will have advocacy appointmen t in [place] to move forward with above steps. Mother also has what sounds like APC but this M[employer]are period may help her pay some of her outstandin g bills. Health Concerns Section Related Observation LastModified by Organization Detai ls LastModified Time None Recorded Concern Status LastModified by Organization Details LastModified Time None Recorded Advance Directives Directive None Recorded Payers Insurance Date Sequence Insurance Name Policy Number Policy Olivarez Covered Member ID Olivarez Member ID Guarantor Name 01/25/2022 SLIDING FEE SCHEDULE - DISCOUNT Charles Beckwith
--- OUTSIDE RECORDS SUMMARY | 2024-10-29 16:20 | XMS_ITS | Clinical Summary ---
Author Organization [facility] Address [address] [place] [address] Care Team Providers Care Adz Worker Name Role Phone Rhonda Guzman DDPrabhjot Primary Care Provider [phone] Source Comments PLEASE NOTE, if this patient is a minor, it may be UNLAWFUL to discuss sensitive information that is contained in these records (such as FAMILY PLANNING, MENTAL HEALTH or SUBSTANCE ABUSE) with the minor patient's parent or other person without the patient's specific authorization.[facility] Social History Tobacco Use Types Packs/Day Years Used Date Smoking Tobacco: Never Assessed Social Connections Answer Date Recorded Connectedness 0 12/17/2023 Financial Resource Strain Answer Date R ecorded Financial Resource Strain 0 2023 Stress Answer Date Recorded Stress 0 05/22/2023 Physical Activity Answer Date Recorded Physical Activity 0 05/22/2023 Food Insecurity Answer Date Recorded Food 0 12/28/2023 Transportation Needs Answer Date Record ed Transportation 0 05/22/2023 Housing Stability Answer Date Recorded Housing 0 05/22/2023 Safety and Environment Answer Date Daniel rded Safety 0 05/22/2023 Utilities Answer Date Recorded Utilities 0 05/22/2023 Employment Answer Date Recorded Stress 0 12/17/2023 Sex and Gender Information Value Date Recorded Sex Assigned at Not on file Legal Sex Male 12:05 PM PST Gender Identity Male 05/02/2023 3:14 PM PST Sexual Orientation Straight 05/02/2023 3: 14 PM PST Plan of Treatment Health Maintenance Due Date Last Done Comments Anxiety Screening 1965 Diabetes Screening 1964 Hepatitis C Screening 1964 Lipid Screening 1964 Tobacco Screening 1964 HIV Screening 1979 Hypertension Screening (#1) 1982 Imm-DTaP/Tdap/Td (1 - Tdap) 1983 CT Colonography 2009 Colonoscopy 2009 Colorectal Cancer Screening 2009 FIT/gFOBT 2009 Fecal DNA 2009 Flexible Sigmoidoscopy 2009 Imm-Pneumococcal 50+ (1 of 1 - PCV) 2014 Imm-Zoster, Recombinant (1 of 2) 2014 Evr-PJIXO-17 (1 - season) 2023 Alcohol and Drug Screen 04/03/2024 Depression Annual Screen 04/03/2024 Imm-Influenza (#1) 2024 Imm-Hepatitis B Aged Out No longer el igible based on patient's age to complete this topic Care Teams Adz Worker Relationship Specialty Start Date End Date Rhonda Guzman DDS [address] [place] [address] PCP - General 05/02/23
--- OUTSIDE RECORDS SUMMARY | 2024-10-29 16:20 | XMS_ITS | Encounter Summary ---
Author Organization [facility] Address [address] [place] [address] Care Team Providers Care Injection Maintenance Technician Name Role Phone Rhonda Guzman BERNABE Primary Care Provider [phone] Reason for Visit * Reason Comments Office Visit: Converted Data Conversion Encounter Details Date Type Department Care Team (Late st Contact Info) Description 05/23/2023 Dental Interim Note [facility] [address] [place] [address] Default, [facility] [address] [place] [address] Social History Tobacco Use Types Packs/Day Years Used Date Smoking Tobacco: Never Assessed Social Connections Answer Date Recorded Social Connections and Isolation 0 05/22/2023 Financial Resource Strain Answer Date R ecorded Financial Resource Strain 0 2023 Stress Answer Date Recorded Stress 0 05/22/2023 Physical Activity Answer Date Recorded Physical Activity 0 05/22/2023 Food Insecurity Answer Date Recorded Food 0 05/22/2023 Transportation Needs Answer Date Record ed Transportation 0 05/22/2023 Housing Stability Answer Date Recorded Housing 0 05/22/2023 Safety and Environment Answer Date Daniel rded Safety 0 05/22/2023 Utilities Answer Date Recorded Utilities 0 05/22/2023 Employment Answer Date Recorded Employment 0 05/22/2023 Sex and Gender Information Value Date Recorded Sex Assigned at Not on file Legal Sex Male 12:05 PM PST Gender Identity Male 05/02/2023 3:14 PM PST Sexual Orientation Straight 05/02/2023 3: 14 PM PST documented as of this encounter Plan of Treatment Scheduled Orders Name Type Priority Associated Diagnoses Order Schedule LR LR PRDONTAL SCALING&ROOT PLANING 4/MORE TEETH-QUAD Dental Procedures Routine 1 Occurrences starting 05/05/2023 UL UL PRDONTAL SCALING&ROOT PLANING 4/MORE TEETH-QUAD Dental Procedures Routine 1 Occurrences starting 05/05/2023 LR LR PRDONTAL SCALING&ROOT PLANING 4/MORE TEETH-QUAD Dental Procedures Routine 1 Occurrences starting 05/05/2023 LL LL PRDONTAL SCALING&ROOT PLANING 4/MORE TEETH-QUAD Dental Procedures Routine 1 Occurrences starting 05/05/2023 UL UL PRDONTAL SCALING&ROOT PLANING 4/MORE TEETH-QUAD Dental Procedures Routine 1 Occurrences starting 05/05/2023 UR UR PRDONTAL SCALING&ROOT PLANING 4/MORE TEETH-QUAD Dental Procedures Routine 1 Occurrences starting 05/05/2023 LL LL PRDONTAL SCALING&ROOT PLANING 4/MORE TEETH-QUAD Dental Procedures Routine 1 Occurrences starting 05/05/2023 11 LI 11 LI RESIN-BASED COMPOSITE TWO SURFACES ANTERIOR Dental Procedures Routine 1 Occurrence s starting 05/05/2023 13 M 13 M RESIN-BASED COMPOSITE - ONE SURFACE POSTERIOR Dental Procedures Routine 1 Occurrence s starting 05/05/2023 21 O 21 O RESIN-BASED COMPOSITE - ONE SURFACE POSTERIOR Dental Procedures Routine 1 Occurrence s starting 05/05/2023 21 B 21 B RESIN-BASED COMPOSITE - ONE SURFACE POSTERIOR Dental Procedures Routine 1 Occurrence s starting 05/05/2023 9 LI 9 LI RESIN-BASED COMPOSITE TWO SURFACES ANTERIOR Dental Procedures Routine 1 Occurrence s starting 05/05/2023 20 20 RESIN-BASED COMPOSITE - THREE SURFACES POSTERIOR Dental Procedures Routine 1 Occurrenc es starting 05/05/2023 10 LI 10 LI RESIN-BASED COMPOSITE TWO SURFACES ANTERIOR Dental Procedures Routine 1 Occurrence s starting 05/05/2023 10 F 10 F RESIN-BASED COMPOSITE ONE SURFACE ANTERIOR Dental Procedures Routine 1 Occurrences starting 05/05/2023 29 B 29 B RESIN-BASED COMPOSITE - ONE SURFACE POSTERIOR Dental Procedures Routine 1 Occurrence s starting 05/05/2023 11 F 11 F RESIN-BASED COMPOSITE ONE SURFACE ANTERIOR Dental Procedures Routine 1 Occurrences starting 05/05/2023 documented as of this encounter Visit Diagnoses Not on filedocumented in this encounter Care Teams Injection Maintenance Technician Relationship Specialty Start Date End Date Rhonda Guzman DDS [address] [place] [address] PCP - General 05/02/23 documented as of this encounter
[2024-10-29 16:22] VITALS: BP 131/86; PULSE 96; RESP 16; TEMP 36.8; O2SAT 94; BMI 34.4
--- NOTE | 2024-10-29 16:45 | ED.GENADULT ---
HPI - General Adult General Chief complaint: Insect Bite Stated complaint: stung on his right arm Time Seen by Provider: 10/29/24 16:22 History of Present Illness HPI narrative: This 59-year-old male comes in because of a bee sting on his right forearm that occurred about 2 hours prior to arrival. He states that he has not had a reaction to bee stings in the past. This 1 caused localized symptoms in his right forearm but he also felt some tightness in his jaw. He does not report any symptoms of angioedema or anaphylaxis. He states that he is feeling better now with this time has elapsed. Related Data Previous Rx's ?Medication ?Instructions ?Recorded glipizide 5 mg tablet, extended 5 mg PO DAILY #90 tabs 10/17/24 release 24 hr metformin 500 mg tablet,extended 1,000 mg (2 x 500 mg) PO BID #360 10/17/24 release 24 hr tabs naproxen 500 mg tablet (Naprosyn) 500 mg PO BID #20 tabs 10/17/24 peg 3350-electrolytes 236 240 ml PO Q10M #4,000 mL 10/17/24 gram-22.74 gram-6.74 gram-5.86 gram solution (Golytely) triamcinolone acetonide 0.1 % 1 applic topical BID #15 grams 10/29/24 topical cream Allergies Allergy/AdvReac Type Severity Reaction Status Date / Time No Known Drug Allergies Allergy Verified 10/29/24 16:30 Review of Systems Status of ROS: Reports: 10 or more systems reviewed and unremarkable except as noted in History and below Narrative: Constitutional: No fevers, no weight gain or loss. Eyes: No discharge. No vision changes. HENT: No congestion, no sore throat, no ear pain. Cardiovascular: No chest pain, no palpitations. Respiratory: No shortness of breath, no wheezes, no cough. Gastrointestinal: No abdominal pain, no vomiting, no diarrhea. Genitourinary: No dysuria, no hematuria. Musculoskeletal: Normal range of motion. Skin: Bee sting on the right forearm. Neurological: No dizziness, weakness, sensory change, speech change. Endo/Heme/Allergies: No bruising or bleeding. No polydipsia. Pysch: no suicidality, no anxiety, no insomnia. All other systems reviewed and are negative. [facility] Medical History (Updated 10/29/24 @ 16:48 by Alexey Najera MD) Lateral epicondylitis ?M77.10 - Lateral epicondylitis, unspecified elbow (ICD-10) Diabetes ?E11.9 - Type 2 diabetes mellitus without complications (ICD-10) Screening due ?Z13.9 - Encounter for screening, unspecified (ICD-10) Hypertension ?I10 - Essential (primary) hypertension (ICD-10) Hyperlipidemia ?E78.5 - Hyperlipidemia, unspecified (ICD-10) DM (diabetes mellitus), type 2 ?E11.9 - Type 2 diabetes mellitus without complications (ICD-10) Surgical History (Updated 08/15/22 @ 11:19 by Lucía Izaguirre MD) No history of previous surgery Family History (Updated 08/15/22 @ 01:36 by Diego Bosch RN) Mother DM (diabetes mellitus), type 2 Social History (Updated 10/17/24 @ 14:13 by Sarah Bhatti ~ [facility]) What is your current living situation?: unable to answer Problems where you live: unable to answer In the past 12 months, utilities in danger of being shut off: unable to answer In past 12 months, lack of transportation kept you from medical appts, meetings, work, or getting things needed for daily living: unable to answer In the past 12 mos, have been you worried that your food would run out before you had money to buy more?: unable to answer In the past 12 mos, the food you bought just didn't last and you didn't have money to buy more?: unable to answer Highest level of school completed/degree received: 9th grade Smoking Status: Never smoker How often do you have a drink containing alcohol: monthly or less Alcohol type: hard liquor How many standard drinks containing alcohol do you have on a typical day: 1 or 2 How often do you have six or more drinks on one occasion: Monthly AUDIT-C Alcohol total score: 3 Non-prescribed substance use: denies use Caffeine: Yes How often does anyone, including family, friends and others, physically hurt you: unable to answer How often does anyone, including family, friends and others, insult or talk down to you: unable to answer How often does anyone, including family, friends and others, threaten you with harm: unable to answer How often does anyone, including family, friends and others, scream or curse at you: unable to answer service: No Exam Narrative: Exam Narrative: Constitutional: Well-developed, well-nourished, no acute distress. HEENT: Normocephalic, atraumatic. Oropharynx appears normal. No angioedema. Neck: Normal range of motion. Nontender. Supple. Heart: Regular. No murmurs. Normal rate. Intact distal pulses. Lungs: Clear to auscultation. No chest discomfort. No wheezes, rhonchi, or rales. Abdomen: Normal bowel sounds. Nontender. No rebound tenderness. Genitalia: Deferred. Back: No midline tenderness. Normal range of motion. Extremities: Normal range of motion. Mild erythema on the medial aspect of the right forearm from a bee sting. No sign of swelling. Skin: Intact. No rash. Warm. No erythema or pallor. Neurologic: No altered sensation. No weakness. Alert and oriented. Psychiatric: No suicidality. No anxiety or depression. No insomnia. Nursing notes and vitals signs are reviewed. Const: Vital Signs, click to edit/add: Vital Signs - 24 hr 10/29/24 16:22 Temperature 98.3 F Pulse Rate [Pulse Oximeter] 96 Respiratory Rate 16 Blood Pressure [Ri ght Upper Arm] 131/86 Pulse Oximetry 94 Oxygen Delivery Me thod Room Air Course Vital Signs Vital signs: Initial Vital Signs Temperature 98.3 F 10/29/24 16:22 Temperature Source Temporal Artery Scan 10/29/24 16:22 Pulse Rate 96 10/29/24 16:22 Respiratory Rate 16 10/29/24 16:22 Blood Pressure 131/86 10/29/24 16:22 Blood Pressure Mean 101 10/29/24 16:22 Blood Pressure Position Sitting 10/29/24 16:22 Pulse Oximetry 94 10/29/24 16:22 Oxygen Delivery Method Room Air 10/29/24 16:22 Vital Signs Temperature 98.3 F 10/29/24 16:22 Pulse Rate 96 10/29/24 16:22 Respiratory Rate 16 10/29/24 16:22 Blood Pressure 131/86 10/29/24 16:22 Pulse Oximetry 94 10/29/24 16:22 Oxygen Delivery Method Room Air 10/29/24 16:22 Temperature 98.3 F 07/29/25 16:22 Pulse Rate 96 10/29/24 16:22 Respiratory Rate 16 10/29/24 16:22 Blood Pressure 131/86 10/29/24 16:22 Pulse Oximetry 94 10/29/24 16:22 Oxygen Delivery Method Room Air 10/29/24 16:22 Medical Decision Making MDM Narrative Medical decision making narrative: This patient got stung by a bee and comes in because of more symptoms as described above. He is not showing any signs of angioedema or anaphylaxis. This bee sting occurred a couple hours prior to arrival here and he states that he is now feeling better. The patient did receive a 1 time oral dose of dexamethasone and understands that this will cause his blood glucose to increase temporarily. He also received an oral dose of Benadryl 25 mg. I did provide a prescription for triamcinolone cream for topical relief also. Discharge Plan Discharge Clinical Impression: Bee sting Patient Disposition: Home, Self-Care Condition: Improved Additional Instructions: Use triamcinolone cream as needed and directed for symptomatic relief. Follow up with MD return if worsening. Prescriptions: New triamcinolone acetonide 0.1 % cream 1 applic topical BID Qty: 15 0RF No Action glipizide 5 mg tablet extended release 24hr 5 mg PO DAILY Qty: 90 3RF metformin 500 mg tablet extended release 24 hr 1,000 mg PO BID Qty: 360 3RF naproxen [Naprosyn] 500 mg tablet 500 mg PO BID Qty: 20 0RF peg 3350-electrolytes [Golytely] 236-22.74-6.74 -5.86 gram recon soln 240 ml PO Q10M Qty: 4000 0RF Rx Instructions: until fecal effluent is clear Follow Up/Referrals: Perfecto Newman MD [Primary Care Provider, Internal Medicine] Stand Alone Forms: [employer] Info Instructions
== END 2024-10-29 17:15 | disposition home or self-care (01) ==
LOC: ED 16:58
PROVIDERS: Emergency Provider Emergency Medicine Emergency Medical Services; PCP Internal Medicine
DX: T63.441A Toxic effect of venom of bees, accidental (unintentional), initial encounter (principal)
CPT/HCPCS: 99283; 99284; J1100

== ENCOUNTER 2024-11-04 07:30 | Outpatient (CLI) | payer MEDICAID, SELFPAY ==
--- NOTE | 2024-11-04 09:21 | P.ANES_ITS ---
Anesthesia Charges Start Date/Time Anesthesia Start Date: 11/04/24 Anesthesia Start Time: 08:55 Stop Date/Time Anesthesia Stop Date: 11/04/24 Anesthesia Stop Time: 09:21 Coding CPT Codes CPT Codes: GIOVANNA MARQUEZ INTST NDSC NOS - 50827 ([id number]) P2 - PATIENT W/MILD SYST DISEASE, QX - STRUCTURAL ARCHITECT SVC W/ MD MED DIRECTION, QK - MUD ENGINEER 2-4 CNCRNT ANES PROC
--- NOTE | 2024-11-04 09:21 | W.ANESCHARGE ---
Anesthesia Charges Start Date/Time Anesthesia Start Date: 11/04/24 Anesthesia Start Time: 08:55 Stop Date/Time Anesthesia Stop Date: 11/04/24 Anesthesia Stop Time: 09:21 Coding CPT Codes CPT Codes: GIOVANNA MARQUEZ INTST NDSC NOS - 59855 ([id number]) P2 - PATIENT W/MILD SYST DISEASE, QX - QA AUTOMATION DEVELOPER SVC W/ MD MED DIRECTION, QK - PRESSING DEPARTMENT SUPERVISOR 2-4 CNCRNT ANES PROC
--- NOTE | 2024-11-04 09:51 | W.ANESCHARGE ---
Anesthesia Charges Start Date/Time Anesthesia Start Date: 11/04/24 Anesthesia Start Time: 08:55 Stop Date/Time Anesthesia Stop Date: 11/04/24 Anesthesia Stop Time: 09:21 Coding CPT Codes CPT Codes: GIOVANNA LWR INTST NDSC NOS - 33404 ([id number]) P2 - PATIENT W/MILD SYST DISEASE, QK - ENGINEERING SUPPLIES SALES 2-4 CNCRNT ANES PROC, QX - MEAT TEAM MEMBER SVC W/ MD MED DIRECTION
--- NOTE | 2024-11-04 09:51 | P.ANES_ITS ---
Anesthesia Charges Start Date/Time Anesthesia Start Date: 11/04/24 Anesthesia Start Time: 08:55 Stop Date/Time Anesthesia Stop Date: 11/04/24 Anesthesia Stop Time: 09:21 Coding CPT Codes CPT Codes: GIOVANNA LWR INTST NDSC NOS - 94130 ([id number]) P2 - PATIENT W/MILD SYST DISEASE, QK - GAME DEVELOPER 2-4 CNCRNT ANES PROC, QX - FARM TRACTOR MECHANIC SVC W/ MD MED DIRECTION
== END 2024-11-04 07:31 | disposition home or self-care (01) ==
LOC: OP CLINIC 07:32
PROVIDERS: PCP Internal Medicine; Visit Provider Internal Medicine
DX: Z12.11 Encounter for screening for malignant neoplasm of colon (principal); D12.3 Benign neoplasm of transverse colon; K64.8 Other hemorrhoids
CPT/HCPCS: 00811; 00812; 45380; 88305; T1013; J2704